=== PATIENT | female | born 1950 | race Caucasian/White ===

== ENCOUNTER 2020-11-04 09:09 | Outpatient (CLI) | payer OTHER, SELFPAY ==
--- NOTE | ~2020-11-04 | DEXA_ITS ---
Bone Density Report Name: Radha Garces Age: 70 Sex: Female Ethnicity: White Date of : 1950 Indication: postmenopausal; height loss; cancer; hysterectomy; Referring Provider: Flor Buitrago Study: Bone densitometry was performed. Exam Date: November 04, 2020 Accession number: [id number] Bone Density: Region BMD T-score Z-score Classification AP Spine (L1-L4) 1.086 0.4 2.4 Normal Femoral Neck (Left) 0.810 -0.4 1.4 Normal Total Hip (Left) 0.981 0.3 1.8 Normal Total Hip Bilateral Avg 0.968 0.2 1.7 Normal Femoral Neck (Right) 0.873 0.2 2.0 Normal Total Hip (Right) 0.954 0.1 1.5 Normal World Health Organization criteria for BMD impression classify patients as: Normal (T-score at or above -1.0), Osteopenia (T-score between -1.0 and -2.5), or Osteoporosis (T-score at or below -2.5). 10-year Fracture Risk: FRAX not reported because: All T-scores for Spine Total, Hip Total, Femoral Neck at or above -1.0 Treated for osteoporosis Clinical Information Provided by Patient: Is being treated for osteoporosis Has used the following medications: Vitamin D Has the following medical conditions: Cancer, Hysterectomy Patient maximum height was 62 Menopause Age: 46 No regular weight bearing exercise Drinks caffeinated beverages Onset of menses at age 14 Number of children 2 Impression: The patient has normal bone mass. Discussion: It is important to ask patients whether they are taking their medications and to encourage continued and appropriate compliance with their osteoporosis therapies to reduce fracture risk. It is also important to review their risk factors and encourage appropriate calcium and vitamin D intakes, exercise, fall prevention and other lifestyle measures. Follow-Up: Consider a repeat BMD and Vertebral Fracture Assessment (VFA) exam in 2 years or sooner if medically necessary, to reassess this patient's status. Reported by: JENNIFER on 11/04/2020 9:51:00 AM. Reviewed, dictated and finalized at location AMalena GONZALEZ
== END 2020-11-04 09:10 | disposition home or self-care (01) ==
PROVIDERS: PCP Family Medicine; Visit Provider Nurse Practitioner Family
DX: Z78.0 Asymptomatic menopausal state (principal)
CPT/HCPCS: 77080

== ENCOUNTER → 2021-11-21 16:22 | Outpatient (CLI) | payer OTHER, SELFPAY ==
--- NOTE | ~2021-11-21 | XR_ITS ---
XR chest 2V 11/21/2021 16:43 Indication: Shortness of breath Procedure: 2 view chest Comparison: Comparison to multiple prior studies sequentially, with oldest reviewed study dated 08/2013. Findings: There is patchy infiltrates of the mid and lower lungs, consistent with pneumonia. Borderli ne heart size. No pleural effusion or pneumothorax. No acute osseous abnormality. Impression: 1: Patchy bilateral infiltrates, suspicious for pneumonia. Reviewed, dictated and finalized at location A. Impression: 1: Patchy bilateral infiltrates, suspicious for pneumonia.
== END ==
PROVIDERS: PCP Family Medicine; Visit Provider Nurse Practitioner Family
DX: R05.3 Chronic cough (principal); R91.8 Other nonspecific abnormal finding of lung field
CPT/HCPCS: 71046

== ENCOUNTER → 2021-12-22 10:30 | Outpatient (CLI) | payer OTHER, SELFPAY ==
--- NOTE | ~2021-12-22 | XR_ITS ---
EXAMINATION: XR chest 2V DATE: 12/22/2021 12:14 INDICATION: Pneumonia, unspecified organism. TECHNIQUE: Frontal and lateral views of the chest were obtained. COMPARISON: Chest 2 views 11/21/2021, 01/20/2019, chest CT 06/08/2014 FINDINGS: The lung volumes are normal. There are reticular opacities in left midlung zone. No pleural effusion or pneumothorax. The heart size is normal. Surgical clips in the right upper quadrant are l ikely from cholecystectomy. IMPRESSION: 1. Stable reticular opacities in left midlung zone, likely mild chronic lung disease. Reviewed, dictated and finalized at location A. IMPRESSION: 1. Stable reticular opacities in left midlung zone, likely mild chronic lung di sease.
== END ==
PROVIDERS: PCP Family Medicine; Visit Provider Nurse Practitioner Family
DX: J18.9 Pneumonia, unspecified organism (principal); R91.8 Other nonspecific abnormal finding of lung field
CPT/HCPCS: 71046

== ENCOUNTER 2022-03-16 09:35 | Outpatient (CLI) | payer OTHER, SELFPAY ==
--- NOTE | 2022-03-16 11:00 | NEURO_ITS ---
Impression: # Complains of stiffness and generalized weakness particularly in the AM. # Normal motor and sensory nerve conduction study. # Normal needle/EMG exam with no neurogenic changes noted. # Clinical correlation recommended. Nerve Conduction Studies Anti Sensory Summary Table Stim Site NR Peak (ms) P-T Amp (?V) Site1 Site2 Delta-P (ms) Dist (cm) Devon (m/s) Left Sup Fibular Anti Sensory (Ant Lat Mall) 14 cm 3.0 5.3 14 cm Ant Lat Mall 3.0 16.0 53 Right Sup Fibular Anti Sensory (Ant Lat Mall) 14 cm 3.2 15.3 14 cm Ant Lat Mall 3.2 16.0 50 Left Sural Anti Sensory (Lat Mall) Calf 3.3 10.3 Calf Lat Mall 3.3 16.0 48 Right Sural Anti Sensory (Lat Mall) Calf 3.6 11.0 Calf Lat Mall 3.6 16.0 44 Motor Summary Table Stim Site NR Onset (ms) O-P Amp (mV) Site1 Site2 Delta-0 (ms) Dist (cm) Devon (m/s) Left Peroneal Motor (Vastus Med) Ankle 4.3 0.7 Popit Ankle 6.4 34.0 53 Popit 10.7 0.7 Right Peroneal Motor (Vastus Med) Ankle 4.7 1.1 Popit Ankle 7.1 35.0 49 Popit 11.8 0.9 Left Tibial Motor (Abd Lopez Brev) Ankle 4.6 2.9 Knee Ankle 8.0 39.0 49 Knee 12.6 2.9 Right Tibial Motor (Abd Lopez Brev) Ankle 4.9 1.0 Knee Ankle 8.4 37.0 44 Knee 13.3 1.6 F Wave Studies NR F-Lat (ms) L-R F-Lat (ms) Left Peroneal (Mrkrs) (EDB) 55.36 0.58 Right Peroneal (Mrkrs) (EDB) 55.94 0.58 Left Tibial (Mrkrs) (Abd Hallucis) 56.26 0.82 Right Tibial (Mrkrs) (Abd Hallucis) 55.44 0.82 EMG Side Muscle Nerve Root Ins Act Fibs Amp Dur Recrt Comment Right AntTibialis Dp Br Fibular L4-5 Nml Nml Nml Nml Nml Right Gastroc Tibial S1-2 Nml Nml Nml Nml Nml Right Fibularis Long Sup Br Fibular L5-S1 Nml Nml Nml Nml Nml Right Flex Dig Long Tibial L5-S2 Nml Nml Nml Nml Nml Right Ext Dig Brev Dp Br Fibular L5, S1 Nml Nml Nml Nml Nml Left AntTibialis Dp Br Fibular L4-5 Nml Nml Nml Nml Nml Left Gastroc Tibial S1-2 Nml Nml Nml Nml Nml Left Fibularis Long Sup Br Fibular L5-S1 Nml Nml Nml Nml Nml Left Flex Dig Long Tibial L5-S2 Nml Nml Nml Nml Nml Left Ext Dig Brev Dp Br Fibular L5, S1 Nml Nml Nml Nml Nml MTDD
== END 2022-03-16 09:36 | disposition home or self-care (01) ==
PROVIDERS: PCP Family Medicine; Visit Provider Family Medicine
DX: M62.81 Muscle weakness (generalized) (principal)
CPT/HCPCS: 95886; 95910

== ENCOUNTER 2022-06-24 11:08 | Inpatient (IN) | payer OTHER, SELFPAY ==
[2022-06-24] VITALS (55 sets, daily range): BP systolic 119–190; BP diastolic 62–112; PULSE 46–78; RESP 10–28; TEMP 35.6; O2SAT 93–100; BMI 41.3
--- NOTE | ~2022-06-24 | CT_ITS ---
EXAMINATION: CT brain wo con DATE: 06/24/2022 11:43 INDICATION: Syncope TECHNIQUE: Computed tomography (CT) of the head was performed without intravenous contrast. Sagittal and coronal reconstructions were performed. The mA was adjusted according to patient size. Iterative reconstruction technique was employed. The dose-length product was 605.33 mGy-cm. COMPARISON: None FINDINGS: No acute intracranial hemorrhage, acute infarction or abnormal extra axial fluid collection. Symmetri c prominence of the sulci consistent with mild age-appropriate diffuse cerebral volume loss. Ventric les are normal and symmetric. No mass/mass effect. The orbits, paranasal sinuses and mastoid air cell s are normal. IMPRESSION: 1. Normal aging brain. No acute intracranial process. Reviewed, dictated and finalized at location A. SPECIALIST
--- NOTE | ~2022-06-24 | NM_ITS ---
EXAMINATION: NM yvonne stress w perfusion DATE: 06/27/2022 13:03 INDICATION: Collapse. Elevated troponin. TECHNIQUE: Rest images were obtained following intravenous administration of 9.9 mCi Tc99m tetrofosmi n (Myoview). The patient was infused intravenously with Lexiscan (Regadenoson). Then, 31.7 mCi Tc99m tetrofosmin (Myoview) was administered intravenously, and stress images were obtained. Data was recon structed into short axis and horizontal and vertical long axis SPECT images. Gated SPECT images were also obtained. COMPARISON: None. FINDINGS: There is no definite reversible or fixed perfusion abnormality to suggest ischemia or infar ction. There is normal left ventricular chamber size, wall motion and ejection fraction. Left ventr icular ejection fraction measures 62%. IMPRESSION: 1. Normal myocardial perfusion at rest and during stress. 2. Left ventricular ejection fraction measuring 62%. Reviewed, dictated and finalized at location A. ON SUNGL[employer] ASSEMBLER
--- NOTE | ~2022-06-24 | XR_ITS ---
EXAMINATION: XR chest 1V portable DATE: 06/24/2022 12:15 INDICATION: Syncope. Status post chest compressions. TECHNIQUE: frontal view of the chest was obtained. COMPARISON: Chest radiograph dated 12/22/2021 FINDINGS: The lungs remain clear with no focal airspace opacities, pulmonary edema, pleural effusion or pneumot horax. The cardiomediastinal silhouette is normal. Visualized bones and soft tissues are unremarkable . IMPRESSION: 1. No acute cardiopulmonary disease. Reviewed, dictated and finalized at location A. AINABLE DESIGN COORDINATOR
--- NOTE | 2022-06-24 11:14 | ECG_ITS ---
Measurements Intervals [place] Rate: 57 P: 40 VT: 182 QRS: -15 QRSD: 110 T: 16 QT: 459 QTc: 450 Interpretive Statements SINUS BRADYCARDIA VOLTAGE CRITERIA FOR LVH ABNORMAL ECG NO PREVIOUS ECG AVAILABLE FOR COMPARISON Electronically Signed On 06-24-2022 13:41:24 ACADEMIC AFFAIRS ASSISTANT by Gudio Fraire M.D.
[2022-06-24 11:32] LABS: Basophils Percent Auto 0.2 % (0.2-1.2); Hematocrit 37.9 % (37.0-47.0); Hemoglobin 11.6 g/dL (12.0-15.0); Immature Granulocyte Absolute 0.15 K/mm3 (0.00-0.031); Immature Granulocyte Percent A 1.1 % (0-0.5); Lymphocytes Absolute Auto 3.75 K/mm3 (0.9-3.2); Lymphocytes Percent Auto 28.1 % (18.3-44.2); Mean Corpuscular HGB Conc 30.6 g/dl (32-36); Mean Corpuscular Hemoglobin 23.9 pg (26-34); Mean Corpuscular Volume 78.1 fl (80-100); Monocytes Absolute Auto 0.5 K/mm3 (0.1-0.6); Monocytes Percent Auto 3.4 % (2.6-8.5); Neutrophils Percent Auto 67.2 % (45.5-73.1); Platelet Count Result 387 k/mm3 (150-375); Red Blood Count 4.85 M/mm3 (4.2-5.4); Red Cell Distribution Width 17.9 % (11.5-14.5); White Blood Count 13.4 K/mm3 (4.5-10.0)
[2022-06-24 11:41] LABS: Alanine Aminotransferase 57 U/L (6-35); Albumin Level 4.2 g/dL (3.5-5.1); Alkaline Phosphatase 94 U/L (38-126); Anion Gap 14 mmol/L (8-16); Aspartate Amino Transferase 93 U/L (14-36); Bilirubin,Total 0.5 mg/dL (0.2-1.3); Blood Urea Nitrogen 24 mg/dL (7-17); Calcium 9.4 mg/dL (8.4-10.2); Carbon Dioxide 15 mmol/L (22-30); Chloride 108 mmol/L (98-107); Estimated CRCL calculation 42 ml/min; Estimated Glomerular Filt Rate 44; Glucose 129 mg/dL (65-110); Sodium 137 mmol/L (137-145)
--- NOTE | 2022-06-24 12:03 | ED.SYNCOPE ---
HPI - Syncope General Chief Complaint: Syncope Stated Complaint: ?unresponsive Time Seen by Provider: 06/24/22 11:37 History of Present Illness HPI narrative: Patient is a 71-year-old female with a history of CAD, hypothyroidism, hypertension presenting with syncope. Patient was carrying in some groceries when she started to feel lightheaded. Patient states that she tried to lean against the counter which is the last thing she remembers. The patient's was present and states that she just dropped to the floor completely unresponsive. States that she remained this way so he started chest compressions. He called EMS and then continued compressions before delivering a precordial thump. The patient subsequently started to arouse. By the time EMS arrived, the patient was A&O x3. She was recently treated for influenza as well as a UTI. States that she recently started prednisone for polymyalgia rheumatica. States that she has been doing well until this morning. She denies recent fevers or chills, headache, chest pain, palpitations, shortness of breath, abdominal pain, nausea or vomiting, diarrhea, dysuria, leg swelling. Related Data Home Medications Medication Instructions Recorded Confirmed aspirin 81 mg tablet,delayed 81 mg PO QHS 10/24/19 06/24/22 release cetirizine 10 mg tablet (Zyrtec) 10 mg PO QHS 10/24/19 06/24/22 cholecalciferol (vitamin D3) 25 25 mcg PO QHS 10/24/19 06/24/22 mcg (1,000 unit) capsule tamoxifen 20 mg tablet 20 mg PO QHS 10/24/19 06/24/22 clopidogrel 75 mg tablet (Plavix) 75 mg PO QHS 01/29/20 06/24/22 ursodiol 250 mg tablet 750 mg PO QHS 09/15/20 06/24/22 ferrous sulfate 325 mg (65 mg 325 mg PO BID 04/24/22 06/24/22 iron) tablet,delayed release levothyroxine 50 mcg tablet 50 mcg PO QAM 06/24/22 06/24/22 metoprolol succinate 25 mg 25 mg PO QHS 06/24/22 06/24/22 tablet,extended release 24 hr (Toprol XL) prednisone 10 mg tablet 10 mg PO TID 06/24/22 06/24/22 trimethoprim 100 mg tablet 100 mg PO HS 06/24/22 06/24/22 Allergies Allergy/AdvReac Type Severity Reaction Status Date / Time amoxicillin Allergy Unknown Upset Verified 06/24/22 13:12 stomach Review of Systems Review of Systems: All systems reviewed & are unremarkable except as noted in HPI and below PMFSH Past Medical History Medical History Anxiety Breast cancer Left breast cancer proximally 21 years ago status post lumpectomy and chemoradiation. Right breast cancer (in situ) approximately 3 years ago status post lumpectomy, currently on tamoxifen. Bronchiolitis obliterans organizing pneumonia Bruit of right carotid artery Chronic kidney disease, stage 3 Dyslipidemia Hypertension Osteoarthritis Peripheral arterial disease Polymyalgia rheumatica Surgical History Surgical History History of section History of cholecystectomy History of hysterectomy History of vascular surgery Left upper extremity stent. Family History Family History Father Hypertension Patient's father is , Onset Age: 52 Cerebrovascular accident Mother Family history of diabetes mellitus in first degree relative Family history of pancreatic cancer Family history of primary malignant neoplasm of liver Patient's mother is , Onset Age: 64 Sibling Malignant neoplasm of prostate Daughter Breast cancer H/O mastectomy Social History Social History Social History: Surrogate medical decision maker: Thomas Mili, spouse. Code status: Full code. Smoking status: Never smoker Second hand tobacco smoke exposure: No Alcohol intake: never Substance use: never Substance use type: does not use Lack of Transportation: No Lack of Food: Never True Current Housing: [place]
[2022-06-24 12:33] LABS: INR 1.1; Partial Thromboplastin Time 23.1 SECONDS (22.3-36.8); Prothrombin Time 13.9 Seconds (11.1-14.7)
[2022-06-24 12:40] LABS: NT Pro B Type Natriuretic Pept 804 pg/mL (5-100); Troponin I < 0.012 ng/mL (0.000-0.034)
[2022-06-24 13:00] LABS: Lactic Acid Reflex 3.5 mmol/L (0.7-2.0)
[2022-06-24 13:25] LABS: Influenza A QL RT-PCR Negative (Negative); Influenza B QL RT-PCR Negative (Negative); SARS-CoV-2 RNA PCR Negative
--- NOTE | 2022-06-24 14:45 | PM.IMHP ---
H&P: HPI History of Present Illness Date/Time: 06/24/22 14:45 Chief Complaint: Unresponsive episode. Narrative: This is a very pleasant 71-year-old female with history of hypertension, hyperlipidemia, peripheral arterial disease status post left upper extremity stent, hypothyroidism, iron deficiency anemia, breast cancer on tamoxifen, and polymyalgia rheumatica who presented to the emergency department via EMS from home for evaluation of an unresponsive episode. She was just diagnosed with polymyalgia rheumatica and was started on prednisone a couple of days ago with marked improvement in her proximal muscle weakness and pain. In fact she and her went out shopping today and she reports feeling great for the 1st time in months. While carrying groceries into the house she suddenly felt fatigued, weak, and lightheaded and she bent over the kitchen counter to ?rest.? Her witnessed her falling down to her knees and back onto the floor. She was pale, cool, clammy, and unresponsive and was reportedly not breathing. He was unable to feel a pulse and started CPR. After a couple minutes of CPR he reached for the phone and called 911. Within a minute or 2 she was still not responding and he notes that her lips were turning blue. He gave her a precordial thump and shortly thereafter she gas for air and within a minute or so she was responding to questions appropriately. She was alert and oriented on EMS arrival. In route to the hospital she started to feel nausea and was given Zofran with improvement. Blood pressure was stable if not high on arrival to the ED. Her pulse has been pretty consistently in the mid to upper 50s. Labs were significant for WBC of 13.4, sodium 137, potassium 4.0, magnesium 2.0, calcium 9.4, chloride 108, carbon dioxide 15, BUN 24, creatinine 1.20, lactic acid 3.5 food, troponin less than 0.012, proBNP at 804. EKG showed a sinus bradycardia with voltage criteria for LVH. Brain CT and chest x-ray were unremarkable. At the time my evaluation she feels fine and has absolutely no complaints. She has never had similar symptoms in the past. She has no known history of cardiac dysrhythmia. She denies syncopal episodes in the past and she has not had issues with orthostasis. She does not recall having chest pain or discomfort prior to this episode and she has never had exertional chest pain. She had influenza A a couple of weeks ago and still has a mild lingering cough but other than that feels well. Review of Systems Review of Systems: Twelve systems were reviewed. She was hospitalized at [place] for influenza a couple of weeks ago and completed a course of Tamiflu. She still has a lingering cough. No fever, chills, or sweats. She denies focal weakness and paresthesias. No history of seizure reported seizure activity today. She denies nausea, vomiting, diarrhea, and dysuria. No lower extremity swelling. No history of venous thromboembolism. Chest CT at [place] couple of weeks ago was negative for PE. Except as documented, all other systems were reviewed and are negative. [facility] Past Medical History Medical History (Updated 06/24/22 @ 15:08 by Jessica Buenrostro PA-C) Anxiety Breast cancer Left breast cancer proximally 21 years ago status post lumpectomy and chemoradiation. Right breast cancer (in situ) approximately 3 years ago status post lumpectomy, currently on tamoxifen. Bronchiolitis obliterans organizing pneumonia Bruit of right carotid artery Chronic kidney disease, stage 3 Dyslipidemia Hypertension Osteoarthritis Peripheral arterial disease Polymyalgia rheumatica Surgical History Surgical History (Updated 06/24/22 @ 15:01 by Jessica Buenrostro PA-C) History of section History of cholecystectomy History of hysterectomy History of vascular surgery Left upper extremity stent. Family History Family History Father Hypertension P
[2022-06-24 15:13] LABS: Troponin I 0.035 ng/mL (0.000-0.034)
[2022-06-24 15:48] LABS: Reflex Lactic Acid Yes or No Add Lactic
[2022-06-24 16:18] LABS: Lactic Acid 2.7 mmol/L (0.7-2.0)
[2022-06-24 17:55] LABS: Troponin I 0.039 ng/mL (0.000-0.034)
--- NOTE | 2022-06-24 22:46 | PC.NURSE ---
This patient, Radha Garces, was admitted to IMU Room 200-01 at 2210. Patient/family oriented to hospital policies and general routines including ID bracelet, bed and alarms, visiting hours, pain management, procedures, bathroom and other care routines, personal items, smoking policy, room service/diet, and visiting hours. Information on how to activate the Rapid Response Team has been discussed. Patient/Family are encouraged to report perceived risks to care and to ask questions if they do not understand what they are told or what they should do.
[2022-06-25] VITALS (16 sets, daily range): BP systolic 142–183; BP diastolic 55–87; PULSE 57–73; RESP 16–22; TEMP 36.1–36.4; O2SAT 96–100
[2022-06-25] MEDS: CLOPIDOGREL BISULFATE 75 MG TABLET PO ×2 (00:59→21:23)
[2022-06-25] MEDS: ASPIRIN 81 MG ENTERIC TABLET PO ×2 (00:59→21:23)
[2022-06-25] MEDS: predniSONE 10 MG TABLET PO ×4 (01:00→17:15)
[2022-06-25] MEDS: CHOLECALCIFEROL 1,000 UNITS TABLET 1000 UNITS PO ×2 (01:00→21:23)
[2022-06-25] MEDS: METOPROLOL SUCCINATE EXT REL 25 MG TABCR PO ×2 (01:00→21:24)
[2022-06-25] MEDS: LORATADINE 10 MG TABLET PO ×2 (01:01→21:25)
[2022-06-25] MEDS: TRIMETHOPRIM 100 MG TABLET PO ×2 (01:01→21:23)
[2022-06-25] MEDS: TAMOXIFEN CITRATE (*CHEMO) 10 MG TABLET 20 MG PO ×2 (01:01→21:25)
[2022-06-25] MEDS: PREGABALIN (*CRX) 75 MG CAPSULE PO ×3 (01:01→17:15)
[2022-06-25 05:32] LABS: Hematocrit 35.2 % (37.0-47.0); Hemoglobin 10.7 g/dL (12.0-15.0); Mean Corpuscular HGB Conc 30.4 g/dl (32-36); Mean Corpuscular Hemoglobin 23.9 pg (26-34); Mean Corpuscular Volume 78.7 fl (80-100); Mean Platelet Volume 10.2 fl (7.4-10.4); Platelet Count Result 366 k/mm3 (150-375); Red Blood Count 4.47 M/mm3 (4.2-5.4); Red Cell Distribution Width 18.3 % (11.5-14.5); White Blood Count 10.9 K/mm3 (4.5-10.0)
[2022-06-25 05:51] LABS: Alanine Aminotransferase 51 U/L (6-35); Albumin Level 3.6 g/dL (3.5-5.1); Alkaline Phosphatase 82 U/L (38-126); Anion Gap 6 mmol/L (8-16); Aspartate Amino Transferase 44 U/L (14-36); Bilirubin,Total 0.5 mg/dL (0.2-1.3); Blood Urea Nitrogen 27 mg/dL (7-17); Calcium 8.9 mg/dL (8.4-10.2); Carbon Dioxide 23 mmol/L (22-30); Chloride 110 mmol/L (98-107); Estimated CRCL calculation 50 ml/min; Estimated Glomerular Filt Rate 55; Glucose 103 mg/dL (65-110); Magnesium 2.1 mg/dL (1.6-2.3); Potassium 4.6 mmol/L (3.4-5.0); Sodium 139 mmol/L (137-145)
[2022-06-25] MEDS: LEVOTHYROXINE SODIUM 50 MCG TABLET PO (05:52)
[2022-06-25] MEDS: FERROUS SULFATE 324 MG TABLET PO ×2 (09:44→17:15)
--- NOTE | 2022-06-25 10:02 | PM.CNCAR ---
Assessment and Plan Assessment and plan (1) Cardiac arrest: Code(s): I46.9 - Cardiac arrest, cause unspecified Status: Acute Assessment and Plan: By the description, it appears patient had an aborted sudden cardiac event with very prompt initiation of CPR and with resuscitation only after precordial thump by her . We do not have documentation of VT/VF to date. Mild troponin elevation would definitely consistent with such an event but is not suggestive of acute coronary syndrome/myocardial infarction has precipitating event. However, patient does not have a known cardiomyopathy or symptoms suggestive of angina or CHF. EF in 2019 was 60-65%. Her EKG does not have acute ischemic changes and to date no other significant tachy or Donald arrhythmias identified on telemetry. However, given very clear description concerningly yet remarkably almost immediate change in clinical status after precordial thump strongly suggests VT and more likely VF. As I explained in detail this is my primary concern clinically we would not expect her to be at high risk for such an event must new LV dysfunction and no significant CAD is present. We will obtain a 2D echocardiogram to assess LV size/function, wall motion abnormalities and LV function, valve pathology chamber size. Recommendations to follow thereafter. I recommended if any wall motion abnormality and or degree of LV dysfunction coronary angiography would be advised for delineation of her coronary anatomy. If etiology is yet to be identified and no subsequent ventricular arrhythmias noted a minimum of 30 day panel monitor would be advised upon discharge and if even at that time diagnosis is still unknown and implantable loop recorder be strongly recommended. I believe she should remain hospitalized until clarification with regard to cardiac status, LV function and least 24 hours monitored on telemetry to assess for a ventricular arrhythmia. I will continue her home medications edema clopidogrel and aspirin, and Toprol XL. Explained process of identification and or management of secondary reversible contributions and the pathophysiology which may increase likelihood for such an event. Description and her symptoms are not consistent with vasovagal etiology or simply intravascular volume depletion. Furthermore, her response with CPR precordial thump are not consistent with PEA arrest, asystole or symptomatic bradycardia. However, despite the above the precise etiology of her presentation is not entirely clear as we discussed at great length. Patient and her verbalized understanding and agreed with plan of care. All questions were answered to their satisfaction. Patient's presentation is highly unusual and highly concerning and warrants further extensive workup initiated this hospitalization and continued after discharge. Depending on patient's clinical course and findings we also discussed potential referral to electrophysiology. DVT prophylaxis. Continue panel monitor in IMU. Repeat 12 lead EKG and troponin. (2) Elevated troponin: Code(s): R77.8 - Other specified abnormalities of plasma proteins Status: Acute Assessment and Plan: As above. Mild elevation not consistent with a significant infarction most likely demand ischemia in this repeat troponin is significantly higher. Echocardiogram pending. Continue telemetry. (3) Peripheral arterial disease: Code(s): I73.9 - Peripheral vascular disease, unspecified Status: Acute Assessment and Plan: Stable, asymptomatic. Statin therapy strongly advised. (4) Hypertension: Code(s): I10 - Essential (primary) hypertension Status: Acute Assessment and Plan: Hemodynamically stable. (5) Dyslipidemia: Code(s): E78.5 - Hyperlipidemia, unspecified Status: Acute Assessment and Plan: Unclear if statin therapy was held secondary to patient's pain and weakn
--- NOTE | 2022-06-25 13:46 | PM.IMPN ---
Progress Note: A&P Assessment and Plan (1) Syncope: Code(s): R55 - Syncope and collapse Status: Acute Assessment and Plan: Syncope verses possible cardiac arrest. Workup thus far has an pretty unremarkable and EKG does not show any acute findings. She remains bradycardic in the 50s though she is asymptomatic with that and her blood pressures have been stable. She has and he admitted to IMU and will ask Cardiology to see her in consultation. Echocardiogram and carotid Doppler ultrasounds have been ordered for further evaluation. (2) Elevated lactic acid level: Code(s): R79.89 - Other specified abnormal findings of blood chemistry Status: Acute Assessment and Plan: Likely due to hypoperfusion related to above. No history to suggest active infection. (3) Elevated LFTs: Code(s): R79.89 - Other specified abnormal findings of blood chemistry Status: Acute Assessment and Plan: Abdominal exam is benign. May be related to above. Repeat in a.m.. (4) Peripheral arterial disease: Code(s): I73.9 - Peripheral vascular disease, unspecified Status: Acute Assessment and Plan: Status post left upper extremity stent. Continue aspirin and clopidogrel. (5) Hypertension: Code(s): I10 - Essential (primary) hypertension Status: Acute Assessment and Plan: Blood pressures have been stable in fact a bit elevated. Continue antihypertensives and monitor closely. (6) Dyslipidemia: Code(s): E78.5 - Hyperlipidemia, unspecified Status: Acute Assessment and Plan: Not on a statin for unclear reasons. Check lipids in a.m. (7) Polymyalgia rheumatica: Code(s): M35.3 - Polymyalgia rheumatica Status: Acute Assessment and Plan: Continue prednisone. (8) Chronic kidney disease, stage 3: Code(s): N18.30 - Chronic kidney disease, stage 3 unspecified Status: Acute Assessment and Plan: Renal function is stable on review of previous labs. Subjective Date/time seen: 06/25/22 13:46 No new complaints Exam Const: Other: Well-developed, nontoxic-appearing female sitting in bed no distress. Weight: 93.7 kilograms. BMI: 37.8. HENMT: Other: Normocephalic, atraumatic. Nares pain bilaterally. Oral mucosa moist. Oropharynx clear. Eyes: Other: Pupils are reactive. Extraocular motions intact. Sclerae anicteric. Neck: Other: Supple. No JVD. Faint bilateral carotid bruits. Chest: Other: No bruising or erythema over the chest wall. Resp: Other: Respirations are nonlabored. Fine crackles at the left base otherwise clear to auscultation. Cardio: Other: Bradycardic with normal S1-S2. GI: Other: Abdomen is soft, nontender, and nondistended with positive bowel sounds. Skin: Other: Warm and dry. There is a bruise on the lateral aspect of the right scapula. Neuro: Other: Alert and oriented x4. Cranial nerves 2-12 grossly intact. No gross focal deficits to casual conversation. Extrem: Other: No cyanosis, clubbing, or significant edema. Pulses palpable. No palpable knots or cords. Negative Jordana sign bilaterally. Psych: Other: Pleasant and cooperative with appropriate mood and affect. She is in good spirits. Objective Data Vital Signs Vital Signs: Vital Signs - 24 hr 06/24/22 14:00 06/24/22 14:02 06/24/22 14:50 Temperature Pulse Rate 47 L 49 L 60 Respiratory Rate 17 18 Blood Pressure 180/68 H Pulse Oximetry 99 100 98 Oxygen Delivery 06/24/22 15:04 06/24/22 15:15 06/24/22 15:17 Temperature Pulse Rate 56 L 53 L 57 L Respiratory Rate 16 Blood Pressure 184/104 H Pulse Oximetry 97 99 100 Oxygen Delivery 06/24/22 15:30 06/24/22 15:33 06/24/22 15:34 Temperature Pulse Rate 52 L 59 L 50 L Respiratory Rate 14 19 14 Blood Pressure 130/80 Pulse Oximetry 98 96 97 Oxygen Delivery 06/24/22 15:49 06/24/22 16:00 06/24/22
--- NOTE | 2022-06-25 13:51 | ECG_ITS ---
Measurements Intervals [place] Rate: 72 P: 46 OH: 161 QRS: -19 QRSD: 96 T: 18 QT: 410 QTc: 449 Interpretive Statements ABNORMAL ECG SINUS RHYTHM VOLTAGE CRITERIA FOR LVH COMPARED TO ECG 06/24/2022 11:16:07 HEART RATE HAS INCREASED Electronically Signed On 06-25-2022 15:58:08 PIZZA CHEF by Guido Fraire M.D.
--- NOTE | 2022-06-25 14:51 | PHAR ---
The patient's home med of Ursodiol 250 mg tablet has been verified.
[2022-06-25 14:58] LABS: Troponin I < 0.012 ng/mL (0.000-0.034)
[2022-06-26] VITALS (14 sets, daily range): BP systolic 138–192; BP diastolic 50–94; PULSE 48–102; RESP 16–20; TEMP 36.2–36.6; O2SAT 97–100
[2022-06-26] MEDS: LEVOTHYROXINE SODIUM 50 MCG TABLET PO (05:25)
[2022-06-26] MEDS: predniSONE 10 MG TABLET PO ×3 (09:23→17:38)
[2022-06-26] MEDS: PREGABALIN (*CRX) 75 MG CAPSULE PO ×2 (09:23→17:38)
[2022-06-26] MEDS: FERROUS SULFATE 324 MG TABLET PO ×2 (09:23→17:38)
[2022-06-26] MEDS: PERFLUTREN LIPID MICROSPHERES 1.5 ML VIAL DILUTED TO 10 ML TOTAL VOLUME IV PUSH (10:00)
--- NOTE | 2022-06-26 11:49 | PM.PNCARD ---
Progress Note: A&P Assessment and Plan (1) Cardiac arrest: Code(s): I46.9 - Cardiac arrest, cause unspecified Status: Acute Assessment and Plan: By the description, it appears patient had an aborted sudden cardiac event with very prompt initiation of CPR and with resuscitation only after precordial thump by her . We do not have documentation of VT/VF to date. Mild troponin elevation would definitely consistent with such an event but is not suggestive of acute coronary syndrome/myocardial infarction has precipitating event. However, patient does not have a known cardiomyopathy or symptoms suggestive of angina or CHF. EF in 2019 was 60-65%. Her EKG does not have acute ischemic changes and to date no other significant tachy or Donald arrhythmias identified on telemetry. Bedside review 2D echocardiogram reveals hyperdynamic LV systolic function with LVH, no focal wall motion abnormalities EF 70-75%. As discussed with patient and her will obtained Lexiscan nuclear stress test to assess for myocardial ischemia tomorrow morning prior to discharge. If stress is unremarkable without acute event they will obtain a 30 day playground monitor from our office upon discharge. For patient's states he is not comfortable with her going home without further ischemic evaluation given the circumstances and I feel this is very appropriate. She will stay today as stress test or not be performed today with anticipate discharge home tomorrow if no further issues arise a stress test is favorable. All questions answered the patient and her 's satisfaction. Agrees to plan of care. Repeat troponin was negative in 12 EKG did not reveal subsequent or new ischemic changes. No ventricular arrhythmias or pauses on telemetry. Continue current medical therapy. She may be transferred to [facility]. (2) Elevated troponin: Code(s): R77.8 - Other specified abnormalities of plasma proteins Status: Acute Assessment and Plan: As above. Mild elevation not consistent with a significant infarction most likely demand ischemia. Continue telemetry. (3) Peripheral arterial disease: Code(s): I73.9 - Peripheral vascular disease, unspecified Status: Acute Assessment and Plan: Stable, asymptomatic. Statin therapy strongly advised. (4) Hypertension: Code(s): I10 - Essential (primary) hypertension Status: Acute Assessment and Plan: Hemodynamically stable. (5) Dyslipidemia: Code(s): E78.5 - Hyperlipidemia, unspecified Status: Acute Assessment and Plan: Unclear if statin therapy was held secondary to patient's pain and weakness more recently attributed to polymyalgia rheumatica markedly improved with steroids. I would favor resumption for atherosclerotic risk reduction. Atorvastatin 20 mg at bedtime. (6) Anemia: Qualifiers: Anemia type: iron deficiency Iron deficiency anemia type: unspecified iron deficiency Qualified Code(s): D50.9 - Iron deficiency anemia, unspecified Code(s): D64.9 - Anemia, unspecified Status: Acute Assessment and Plan: Stable. Follow H&H. (7) Polymyalgia rheumatica: Code(s): M35.3 - Polymyalgia rheumatica Status: Acute Assessment and Plan: As above. Defer management to primary service. She remains on prednisone. Subjective Date/time seen: Date of service: 06/26/22 11:49 Follow-up for probable cardiac arrest/unresponsive episode Today patient feels well. Denies chest pain, shortness of breath or palpitations. No new issues overnight. No ventricular arrhythmias or prolonged pauses or high-grade AV blocks. at bedside. I discussed my recommendations for ischemic evaluation prior to discharge which her wholeheartedly agreed and indicated he would not be comfortable otherwise. As we previously discussed he also strongly desires she obtained playground monitor up
--- NOTE | 2022-06-26 12:55 | PM.IMPN ---
Progress Note: A&P Assessment and Plan (1) Syncope: Code(s): R55 - Syncope and collapse Status: Acute Assessment and Plan: Syncope verses possible cardiac arrest. Workup thus far has an pretty unremarkable and EKG does not show any acute findings. She remains bradycardic in the 50s though she is asymptomatic with that and her blood pressures have been stable. She has and he admitted to IMU and will ask Cardiology to see her in consultation. Echocardiogram and carotid Doppler ultrasounds have been ordered for further evaluation. Ischemic workup pending. (2) Elevated lactic acid level: Code(s): R79.89 - Other specified abnormal findings of blood chemistry Status: Acute Assessment and Plan: Likely due to hypoperfusion related to above. No history to suggest active infection. (3) Elevated LFTs: Code(s): R79.89 - Other specified abnormal findings of blood chemistry Status: Acute Assessment and Plan: Abdominal exam is benign. May be related to above. Repeat in a.m.. (4) Peripheral arterial disease: Code(s): I73.9 - Peripheral vascular disease, unspecified Status: Acute Assessment and Plan: Status post left upper extremity stent. Continue aspirin and clopidogrel. (5) Hypertension: Code(s): I10 - Essential (primary) hypertension Status: Acute Assessment and Plan: Blood pressures have been stable in fact a bit elevated. Continue antihypertensives and monitor closely. (6) Dyslipidemia: Code(s): E78.5 - Hyperlipidemia, unspecified Status: Acute Assessment and Plan: Not on a statin for unclear reasons. Check lipids in a.m. (7) Polymyalgia rheumatica: Code(s): M35.3 - Polymyalgia rheumatica Status: Acute Assessment and Plan: Continue prednisone. (8) Chronic kidney disease, stage 3: Code(s): N18.30 - Chronic kidney disease, stage 3 unspecified Status: Acute Assessment and Plan: Renal function is stable on review of previous labs. Subjective Date/time seen: 06/26/22 12:55 No new complaints Exam Const: Other: Well-developed, nontoxic-appearing female sitting in bed no distress. Weight: 93.7 kilograms. BMI: 37.8. HENMT: Other: Normocephalic, atraumatic. Nares pain bilaterally. Oral mucosa moist. Oropharynx clear. Eyes: Other: Pupils are reactive. Extraocular motions intact. Sclerae anicteric. Neck: Other: Supple. No JVD. Faint bilateral carotid bruits. Chest: Other: No bruising or erythema over the chest wall. Resp: Other: Respirations are nonlabored. Fine crackles at the left base otherwise clear to auscultation. Cardio: Other: Bradycardic with normal S1-S2. GI: Other: Abdomen is soft, nontender, and nondistended with positive bowel sounds. Skin: Other: Warm and dry. There is a bruise on the lateral aspect of the right scapula. Neuro: Other: Alert and oriented x4. Cranial nerves 2-12 grossly intact. No gross focal deficits to casual conversation. Extrem: Other: No cyanosis, clubbing, or significant edema. Pulses palpable. No palpable knots or cords. Negative Jordana sign bilaterally. Psych: Other: Pleasant and cooperative with appropriate mood and affect. She is in good spirits. Objective Data Vital Signs Vital Signs: Vital Signs - 24 hr 06/25/22 13:24 06/25/22 14:00 06/25/22 15:51 Temperature Pulse Rate 63 61 Respiratory Rate Blood Pressure Pulse Oximetry 96 Oxygen Delivery Room Air Room Air 06/25/22 16:00 06/25/22 16:00 06/25/22 18:00 Temperature 97.2 F L Pulse Rate 59 L 61 63 Respiratory Rate 18 Blood Pressure 151/68 H Pulse Oximetry 100 Oxygen Delivery 06/25/22 20:00 06/25/22 21:24 06/25/22 20:00 Temperature 97.1 F L Pulse Rate 59 L 57 L 59 L Respiratory Rate 16 Blood Pressure 156/68 H Pulse Oximetry 97 Oxygen Delivery 06/25/22 20:00
--- NOTE | 2022-06-26 14:34 | ECHO_ITS ---
Patient Info Name: Radha Garces Age: 71 years : 1950 Gender: Female Ht: 62 in Wt: 206 lbs BSA: 2.07 m2 HR: 52 bpm BP: 138 / 70 mmHg Heart Rhythm: Sinus Rhythm Technical Quality: Fair Exam Date: 06/26/2022 10:13 AM Exam Location: [facility] Card Pulmonary Patient Status: Inpatient Admit Date: 06/24/2022 Staff Ordering Physician: Jessica Buenrostro PA-C Sanitation Truck Cleaner: Valeria Rodrigez RDCS Attending Provider: Johan Carrasquillo MD Referring Physician: Chitra SHAFFER; Exam Type: CA echo dop color flow w con Study Info Indications - syncope Complete two-dimensional, color flow and Doppler transthoracic echocardiogram is performed with contrast to opacify the left ventricle and to improve the deliniation of the left ventricle endocardial borders. Contrast/Agitated Saline Contrast/Ag. Saline: Definity Amount: 3.00 ml Administered By: Valeria Rodrigez RDCS Existing IV Access: Yes IV Access Condition: patent with no signs of infiltration Summary 1. Left ventricular chamber dimension is normal. 2. Left ventricular systolic function is hyperdynamic, estimated at >70%. 3. There is no increased left ventricular wall thickness. Sigmoid septum. 4. The left ventricular diastolic function is grade II diastolic dysfunction. 5. Left atrial chamber dimension is mildly enlarged. 6. There is mild aortic valve stenosis with a peak velocity of 222.34 cm/s, mean gradient of 11 mmHg, and aortic valve area of 1.50 cm2. 7. There is trace aortic valve regurgitation. 8. There is mild mitral valve regurgitation. 9. There is mild tricuspid valve regurgitation. 10. Moderate pulmonary hypertension, estimated pulmonary arterial systolic pressure is 54 mmHg. Left Ventricle Left ventricular chamber dimension is normal. Left ventricular systolic function is hyperdynamic, estimated at >70%. There is no increased left ventricular wall thickness. Sigmoid septum. The left ventricular diastolic function is grade II diastolic dysfunction. Right Ventricle Right ventricular chamber dimension is normal. Right ventricular systolic function is normal. Left Atria Left atrial chamber dimension is mildly enlarged. Right Atria Right atrial chamber dimension is normal. Aortic Valve The aortic valve is not well visualized. There is mild aortic valve stenosis with a peak velocity of 222.34 cm/s, mean gradient of 11 mmHg, and aortic valve area of 1.50 cm2. There is trace aortic valve regurgitation. There is mild aortic valve calcification. Pulmonic Valve The pulmonic valve is not well visualized. Mitral Valve The mitral valve has thickened leaflets. There is mild mitral valve regurgitation. The mitral valve annulus is mildly calcified. Tricuspid Valve The tricuspid valve leaflets are normal. There is mild tricuspid valve regurgitation. Moderate pulmonary hypertension, estimated pulmonary arterial systolic pressure is 54 mmHg. Pericardium/Pleural The pericardium appears normal. There is no pericardial effusion. Inferior Vena Cava Normal inferior vena cava with >50% collapse upon inspiration consistent with normal right atrial pressure, 5 mmHg. Aorta The aortic root size at the sinus of Valsalva is normal. There is moderate aortic atherosclerosis. Left Ventricular Outflow Tract Name Value Normal ------
[2022-06-26] MEDS: LORATADINE 10 MG TABLET PO (22:41)
[2022-06-26] MEDS: CLOPIDOGREL BISULFATE 75 MG TABLET PO (22:41)
[2022-06-26] MEDS: METOPROLOL SUCCINATE EXT REL 25 MG TABCR PO (22:41)
[2022-06-26] MEDS: CHOLECALCIFEROL 1,000 UNITS TABLET 1000 UNITS PO (22:41)
[2022-06-26] MEDS: ASPIRIN 81 MG ENTERIC TABLET PO (22:41)
[2022-06-26] MEDS: TRIMETHOPRIM 100 MG TABLET PO (22:42)
[2022-06-26] MEDS: TAMOXIFEN CITRATE (*CHEMO) 10 MG TABLET 20 MG PO (22:42)
[2022-06-27] VITALS (9 sets, daily range): BP systolic 157–173; BP diastolic 68–95; PULSE 53–67; RESP 16–20; TEMP 36.2–36.4; O2SAT 96–100
--- NOTE | 2022-06-27 | EST_ITS ---
Patient Info Name: Radha Garces Age: 71 years : 1950 Gender: Female Ht: 61 in Wt: 227 lbs BSA: 2.17 m2 HR: 63 bpm BP: 216 / 97 mmHg Heart Rhythm: Sinus Rhythm Exam Date: 06/27/2022 11:02 AM Exam Location: [facility] Stress Patient Status: Inpatient Admit Date: 06/26/2022 Staff Ordering Physician: Guido Fraire MD Attending Provider: Johan Carrasquillo MD Exercise Technologist: Lucila Floyd, VILMA Nurse: troy ambrosio Exam Type: CA stress yvonne w NM Study Info Indications 790.99 - elevated troponin A regadenoson stress test was performed. Summary 1. No abnormal ST/T wave changes with Lexiscan administration. 2. No arrhythmias were observed during the examination. 3. No chest discomfort with stress test. 4. Please correlate with nuclear medicine images, reported separately. Protocol: Lexiscan Stress ECG Details Stage: REST Duration (min): 2 min : 30 sec HR (bpm): 63 SBP (mmHg): 216 DBP (mmHg): 97 Stage: REST Duration (min): 11 min : 31 sec HR (bpm): 69 SBP (mmHg): 207 DBP (mmHg): 101 Stage: STAGE 1 Duration (min): 1 min : 0 sec HR (bpm): 86 SBP (mmHg): 207 DBP (mmHg): 101 Stage: RECOVERY Duration (min): 1 min : 0 sec HR (bpm): 89 SBP (mmHg): 207 DBP (mmHg): 101 Stage: RECOVERY Duration (min): 2 min : 0 sec HR (bpm): 84 SBP (mmHg): 207 DBP (mmHg): 101 Stage: RECOVERY Duration (min): 3 min : 0 sec HR (bpm): 83 SBP (mmHg): 207 DBP (mmHg): 101 Stage: RECOVERY Duration (min): 3 min : 17 sec HR (bpm): 77 SBP (mmHg): 189 DBP (mmHg): 101 Rest HR: 69 bpm Peak HR: 91 bpm Rest Sys BP: 207 mmHg Peak Sys BP: 189 mmHg Max Pred HR: 150 bpm % Max Pred HR: 61 % Target HR: 128 bpm Max RPP: 17,199 bpm*mmHg BP Response: Normal blood pressure response Termination Reason: Completed protocol Cardiac Symptoms: None Total Time: 1 min : 0 sec Rest Smith BP: 101 mmHg Peak Smith BP: 101 mmHg Total Dose: 0.4 mg Resting ECG Normal sinus rhythm - normal ECG. Stress ECG No abnormal ST/T wave changes with Lexiscan administration. Arrhythmias No arrhythmias were observed during the examination. Report Signatures
[2022-06-27] MEDS: LEVOTHYROXINE SODIUM 50 MCG TABLET PO (06:39)
[2022-06-27] MEDS: predniSONE 10 MG TABLET PO ×2 (09:17→12:26)
[2022-06-27] MEDS: FERROUS SULFATE 324 MG TABLET PO (09:17)
[2022-06-27] MEDS: PREGABALIN (*CRX) 75 MG CAPSULE PO (09:17)
--- NOTE | 2022-06-27 11:33 | PM.PNCARD ---
Progress Note: A&P Assessment and Plan (1) Cardiac arrest: Code(s): I46.9 - Cardiac arrest, cause unspecified <FIDEL Davey - Last Filed: 06/27/22 14:43> Status: Acute <FIDEL Davey - Last Filed: 06/27/22 14:43> Assessment and Plan: Etiology unknown. Echo showed hyperdynamic LV systolic function with LVH, no focal wall motion abnormalities EF 70-75% and grade II diastolic dysfunction. Stress test performed this morning did not show any infarct or ischemia. Will arrange for patient to go home with 30 day shelter monitor from our office. OK for discharge from a cardiac standpoint. <FIDEL Davey - Last Filed: 06/27/22 14:43> (2) Elevated troponin: Code(s): R77.8 - Other specified abnormalities of plasma proteins <FIDEL Davey - Last Filed: 06/27/22 14:43> Status: Acute <FIDEL Davey - Last Filed: 06/27/22 14:43> Assessment and Plan: Mild elevation not consistent with a significant infarction most likely demand ischemia. Continue telemetry. <FIDEL Davey - Last Filed: 06/27/22 14:43> (3) Peripheral arterial disease: Code(s): I73.9 - Peripheral vascular disease, unspecified <FIDEL Davey - Last Filed: 06/27/22 14:43> Status: Acute <FIDEL Davey - Last Filed: 06/27/22 14:43> Assessment and Plan: On statin <FIDEL Davey - Last Filed: 06/27/22 14:43> (4) Hypertension: Code(s): I10 - Essential (primary) hypertension <FIDEL Davey - Last Filed: 06/27/22 14:43> Status: Acute <FIDEL Davey - Last Filed: 06/27/22 14:43> Assessment and Plan: Hemodynamically stable. <FIDEL Davey - Last Filed: 06/27/22 14:43> (5) Dyslipidemia: Code(s): E78.5 - Hyperlipidemia, unspecified <FIDEL Davey - Last Filed: 06/27/22 14:43> Status: Acute <FIDEL Davey - Last Filed: 06/27/22 14:43> Assessment and Plan: On statin <FIDEL Davey - Last Filed: 06/27/22 14:43> (6) Anemia: Qualifiers: Anemia type: iron deficiency Iron deficiency anemia type: unspecified iron deficiency Qualified Code(s): D50.9 - Iron deficiency anemia, unspecified <FIDEL Davey - Last Filed: 06/27/22 14:43> Code(s): D64.9 - Anemia, unspecified <FIDEL Davey - Last Filed: 06/27/22 14:43> Status: Acute <FIDEL Davey - Last Filed: 06/27/22 14:43> Assessment and Plan: Stable. Follow H&H. <FIDEL Davey - Last Filed: 06/27/22 14:43> (7) Polymyalgia rheumatica: Code(s): M35.3 - Polymyalgia rheumatica <FIDEL Davey - Last Filed: 06/27/22 14:43> Status: Acute <FIDEL Davey - Last Filed: 06/27/22 14:43> Assessment and Plan: As above. Defer management to primary service. She remains on prednisone. <FIDEL Davey - Last Filed: 06/27/22 14:43> Assessment and Plan: Attending Addendum: I agree with the above documentation and plan of care as outlined. Thirty day shelter monitor upon discharge. <Guido Fraire MD - Last Filed: 06/27/22 17:06> Subjective Date/time seen: 06/27/22 11:33 Cardiology follow up for syncope, cardiac arrest Feels well this morning and has no complaints. No chest pain or shortness of breath. <FIDEL Davey - Last Filed: 06/27/22 14:43> Review of Systems Review of Systems: All systems reviewed & are unremarkable except as noted in HPI and below <FIDEL Davey - Last Filed: 06/27/22 14:43> Constitutional: Constitutional: Reports as per HPI and Reports no additional constitutional complaints <FIDEL Davey - Last Filed: 06/27/22 14:43> Eyes: Eyes: Reports as per HPI and Reports no additional eye complaints <FIDEL Davey - Last Filed: 06/27/22 14:43> ENT: Reports system reviewed an
--- NOTE | 2022-06-27 13:45 | PM.DS ---
DS: Admitting Diagnosis Discharge Date 06/27/22 Admitting Diagnosis syncope vs cardiac arrest DS: Discharge Diagnosis Discharge Diagnosis (1) Syncope: Code(s): R55 - Syncope and collapse Status: Acute Assessment and Plan: Syncope verses possible cardiac arrest. Workup thus far has an pretty unremarkable and EKG does not show any acute findings. She remains bradycardic in the 50s though she is asymptomatic with that and her blood pressures have been stable. She has and he admitted to IMU and will ask Cardiology to see her in consultation. Echocardiogram and carotid Doppler ultrasounds have been ordered for further evaluation. Ischemic workup pending. (2) Elevated lactic acid level: Code(s): R79.89 - Other specified abnormal findings of blood chemistry Status: Acute Assessment and Plan: Likely due to hypoperfusion related to above. No history to suggest active infection. (3) Elevated LFTs: Code(s): R79.89 - Other specified abnormal findings of blood chemistry Status: Acute Assessment and Plan: Abdominal exam is benign. May be related to above. Repeat in a.m.. (4) Peripheral arterial disease: Code(s): I73.9 - Peripheral vascular disease, unspecified Status: Acute Assessment and Plan: Status post left upper extremity stent. Continue aspirin and clopidogrel. (5) Hypertension: Code(s): I10 - Essential (primary) hypertension Status: Acute Assessment and Plan: Blood pressures have been stable in fact a bit elevated. Continue antihypertensives and monitor closely. (6) Dyslipidemia: Code(s): E78.5 - Hyperlipidemia, unspecified Status: Acute Assessment and Plan: Not on a statin for unclear reasons. Check lipids in a.m. (7) Polymyalgia rheumatica: Code(s): M35.3 - Polymyalgia rheumatica Status: Acute Assessment and Plan: Continue prednisone. (8) Chronic kidney disease, stage 3: Code(s): N18.30 - Chronic kidney disease, stage 3 unspecified Status: Acute Assessment and Plan: Renal function is stable on review of previous labs. DS: Summary Hospital Course Hospital Course: patient admitted for syncope vs cardiac arrest. cardiac henson unrevealing - will be set up with event monitor prior to dc. Fu cardiology and pcp. Time Spent with Patient Time attestation: Total time spent providing and/or coordinating discharge services: Exam Const: Other: Well-developed, nontoxic-appearing female sitting in bed no distress. Weight: 93.7 kilograms. BMI: 37.8. HENMT: Other: Normocephalic, atraumatic. Nares pain bilaterally. Oral mucosa moist. Oropharynx clear. Eyes: Other: Pupils are reactive. Extraocular motions intact. Sclerae anicteric. Neck: Other: Supple. No JVD. Faint bilateral carotid bruits. Chest: Other: No bruising or erythema over the chest wall. Resp: Other: Respirations are nonlabored. Fine crackles at the left base otherwise clear to auscultation. Cardio: Other: Bradycardic with normal S1-S2. GI: Other: Abdomen is soft, nontender, and nondistended with positive bowel sounds. Skin: Other: Warm and dry. There is a bruise on the lateral aspect of the right scapula. Neuro: Other: Alert and oriented x4. Cranial nerves 2-12 grossly intact. No gross focal deficits to casual conversation. Extrem: Other: No cyanosis, clubbing, or significant edema. Pulses palpable. No palpable knots or cords. Negative Jordana sign bilaterally. Psych: Other: Pleasant and cooperative with appropriate mood and affect. She is in good spirits. Discharge Plan Discharge Attending physician on discharge: Marko Alvarez Consulting providers: Guido Fraire Discharging Clinician: Marko Alvarez. Patient Disposition: Home, Self-Care Activity: no preference Diet: as tolerated Patient Instructions: Antibiotic Form St
== END 2022-06-27 15:00 | disposition home or self-care (01) | DRG 312 ==
LOC: ANHED 11:37 → ANH3MEDSUR 14:42 → ANHIMU 20:52
PROVIDERS: Internal Medicine Cardiovascular Disease; Physician Assistant; Admitting Provider Family Medicine; Emergency Provider Emergency Medicine; PCP Family Medicine; Visit Provider Chiropractor
DX: R55 Syncope and collapse (principal); I46.9 Cardiac arrest, cause unspecified; E87.20 Acidosis, unspecified; I25.10 Atherosclerotic heart disease of native coronary artery without angina pectoris; I12.9 Hypertensive chronic kidney disease with stage 1 through stage 4 chronic kidney disease, or unspecified chronic kidney disease; N18.30 Chronic kidney disease, stage 3 unspecified; D50.9 Iron deficiency anemia, unspecified; D05.91 Unspecified type of carcinoma in situ of right breast; E78.5 Hyperlipidemia, unspecified; E03.9 Hypothyroidism, unspecified; R77.8 Other specified abnormalities of plasma proteins; R09.89 Other specified symptoms and signs involving the circulatory and respiratory systems; M35.3 Polymyalgia rheumatica; M19.90 Unspecified osteoarthritis, unspecified site; F41.9 Anxiety disorder, unspecified; Z20.822 Contact with and (suspected) exposure to COVID-19; Z79.82 Long term (current) use of aspirin; Z79.810 Long term (current) use of selective estrogen receptor modulators (SERMs); Z90.49 Acquired absence of other specified parts of digestive tract
CPT/HCPCS: 36415; 70450; 71045; 78452; 80053; 83605; 83735; 83880; 84443; 84484; 85025; 85027; 85610; 85730; 87636; 93005; 93017; 96374; 99285; A9270; A9502; C8929; G0378; J2785; J7512; Q9957

== ENCOUNTER 2022-08-28 01:34 | Day surgery (SDC) | payer OTHER, SELFPAY ==
[2022-08-25 13:36] VITALS: BMI 41.6
[2022-08-28 08:57] VITALS: BP 157/89; PULSE 85; RESP 14; TEMP 36.3; O2SAT 99; BMI 39.8
--- NOTE | 2022-08-28 09:58 | P.OPB_ITS ---
Procedure Note - Brief Procedure Note - Brief Date of procedure: 08/28/22 Pre-op diagnosis: syncope Syncope Post-op diagnosis: Same Procedure performed: loop recorder implantation Description of procedure: Brief History of Present Illness: Patient is a very pleasant 71-year-old female with past medical history significant for peripheral arterial disease status post left subclavian angioplasty and stenting 2008, hypertension, hyperlipidemia, polymyalgia rheumatica, breast cancer on tamoxifen, hypothyroidism presented [facility] 06/26/2022 after witnessed collapse at home which point her began CPR without success until he delivered a precordial thump at which time she was immediately resuscitated. Workup thus far was unrevealing with negative ischemic evaluation, preserved LV systolic function but without an explanation thus far. She wore 3 day clinical research monitor which was unrevealing and subsequently was referred for loop recorder implantation for further observation management. After verbal and written informed consent was obtained from the patient risks, benefits, and alternatives explained in detail the patient agreed to proceed with the plan of care as outlined above. Patient was evaluated at bedside in the [facility] procedure room. Patient was placed the appropriate supine position. Left anterior chest wall was prepped and draped in the usual sterile fashion. Operators in appropriate sterile garb. The left 4th intercostal space was identified and marked. Utilizing approximately 25 cc of 1% subcutaneous lidocaine the left anterior chest wall was then locally anesthetized. After local anesthesia was achieved, 2 fingerbreadths left of the sternum at the 4th intercostal space was again identified and a 1 cm incision was made with the included skin punch tool. Following this with the included introducer, a tract was made subcutaneously at a 45 degree angle from the sternum. The introducer was then inverted 180 degrees and with the included plunger the Medtronic REVEAL LINQ II loop recorder was advanced subcutaneously into position easily and without complication. The plunger was then removed followed by the introducer. Manual pressure was held for least 5-10 min with excellent hemostasis. The device was then interrogated and revealed excellent fidelity and measured at 0.55 mV. The Medtronic REVEAL LINQ II SN [id number] was implanted without complication. The incision was then approximated and closed using Exofin skin adhesive. The incision was then covered with a sterile dressing. Complications: None Implants: Medtronic Reveal LINQ II implantable loop recorder Surgeon: Guido Fraire MD Estimated blood loss (mL): 0 Complications: No immediate complications Condition: Stable Disposition: Same day Findings: Successful implantation of Adnexus LINQ II SN [id number] without complication. Recommendations: Follow post implant precautions as instructed including 1 week wound check as scheduled in the office.
--- NOTE | 2022-08-28 09:58 | WPDHPUPDATE1 ---
History and Physical Update Update Date/Time: 08/28/22 09:58 History and Physical has been reviewed, including an updated exam of the patient. There are NO changes in the patient's condition. Risks, benefits, and alternatives have been discussed and questions answered. Patient agrees to proceed with procedure.
[2022-08-28 10:20] VITALS: BP 158/76; PULSE 87; RESP 19; O2SAT 99
[2022-08-28 10:25] VITALS: BP 156/82; PULSE 85; RESP 18; O2SAT 99
[2022-08-28 10:46] VITALS: BP 128/91; PULSE 77; RESP 18; O2SAT 99
--- NOTE | 2022-08-28 10:46 | SUR.OPER ---
loop implant: start 1020 stop 1025 1% lidocaine 25mls surgical glue and bandaid applied
--- NOTE | 2022-08-28 11:07 | SUR.OPER ---
discharge instructions given with at bedside. all questions and concerns address. wound care instructions given and wound check follow up for next sunday set. patient able to walk to vehicle.
== END 2022-08-28 11:07 | disposition home or self-care (01) ==
PROVIDERS: PCP Family Medicine; Visit Provider Internal Medicine Cardiovascular Disease
PROC: (CPT 33285; principal; 2022-08-28 10:00)
DX: R55 Syncope and collapse (principal); I10 Essential (primary) hypertension; E78.5 Hyperlipidemia, unspecified; M35.3 Polymyalgia rheumatica; D50.9 Iron deficiency anemia, unspecified; E03.9 Hypothyroidism, unspecified; I73.9 Peripheral vascular disease, unspecified; Z85.3 Personal history of malignant neoplasm of breast; Z79.810 Long term (current) use of selective estrogen receptor modulators (SERMs); Z79.51 Long term (current) use of inhaled steroids; Z79.82 Long term (current) use of aspirin; Z79.02 Long term (current) use of antithrombotics/antiplatelets
CPT/HCPCS: 33285; C1764; J0360

== ENCOUNTER 2022-11-09 15:19 | Outpatient (CLI) | payer OTHER, SELFPAY ==
--- NOTE | ~2022-11-09 | CT_ITS ---
EXAMINATION:CT diagnostic chest wo con DATE: 11/09/2022 15:34 INDICATION: Paratracheal nodule. TECHNIQUE: Computed tomography (CT) of the chest was performed without intravenous contrast. Automate d exposure control and iterative reconstruction technique were employed. The dose-length product (DLP ) was 344.42 mGy-cm. COMPARISON: Chest CT 06/08/2014 FINDINGS: There is a pneumatocele in left lower lobe. There is peripheral scarring in left upper lobe , likely radiation fibrosis. There are chronic mild groundglass opacities in all lobes with a perihil ar bronchovascular predominance. No bronchiectasis. There are 4 mm and 5 mm nodules in left lower lob e, stable from 06/08/14. No pleural effusion. There is a stent in proximal left subclavian artery. The re is an electronic subcutaneous implant in left anterior chest wall. The heart size is normal. No pe ricardial effusion. There are changes of cholecystectomy. The liver demonstrates surface nodularity a nd hypertrophy of left lateral segment, consistent with cirrhosis. There are old healed rib fractures bilaterally. There is severe cervical spondylosis and moderate thoracic spondylosis. IMPRESSION: 1. Mild chronic lung disease. 2. Cirrhosis of the liver. Reviewed, dictated and finalized at location E.
== END 2022-11-09 15:20 | disposition home or self-care (01) ==
LOC: ANHIMG 15:20
PROVIDERS: PCP Family Medicine; Visit Provider Family Medicine
DX: J39.8 Other specified diseases of upper respiratory tract (principal); K74.60 Unspecified cirrhosis of liver
CPT/HCPCS: 71250

== ENCOUNTER 2023-04-05 16:31 | Emergency (ER) | payer OTHER, SELFPAY ==
[2023-04-05] VITALS (16 sets, daily range): BP systolic 108–168; BP diastolic 60–98; PULSE 83–120; RESP 12–20; TEMP 36.6–37.8; O2SAT 94–100
--- NOTE | ~2023-04-05 | CT_ITS ---
EXAMINATION: CT brain wo con DATE: 04/05/2023 21:11 INDICATION: Confusion. TECHNIQUE: Computed tomography (CT) of the head was performed without intravenous contrast. The mA wa s adjusted according to patient size. Iterative reconstruction technique was employed. The dose-lengt h product was 605.33 mGy-cm. COMPARISON: Head CT 06/24/2022 FINDINGS: There is no intracranial hemorrhage, acute infarction, or abnormal intracranial mass lesion . There are scattered areas of low attenuation in the cerebral white matter, which is within normal l imits for the patient's age. The ventricles are normal in size. The orbits are normal. There is mild mucosal thickening in the paranasal sinuses. The mastoid air cells are normal. IMPRESSION: 1. Normal aging brain. Reviewed, dictated and finalized at location E. IMPRESSION: 1. Normal aging brain.
--- NOTE | ~2023-04-05 | CT_ITS ---
EXAMINATION: CT abdomen pelvis w con DATE: 04/05/2023 21:12 INDICATION: Fever. Leukocytosis. TECHNIQUE: Computed tomography (CT) of the abdomen and pelvis was performed with 100 mL Omnipaque 350 intravenous contrast. Automated exposure control and iterative reconstruction technique were employe d. The dose-length product was 1329.77 mGy-cm. COMPARISON: Chest CT 11/09/2022 FINDINGS: The visualized portions of the lung bases demonstrate mild chronic lung disease. There is a chronic 5 mm nodule in left lower lobe, likely benign. No pleural effusion. The heart size is normal . No pericardial effusion. There is liver surface nodularity. The spleen is normal. There are changes of cholecystectomy. The pancreas and adrenal glands are normal. There is cortical thinning of the ki dneys. There is a periumbilical ventral hernia containing fat. There is prominent fat in left inguina l canal that may a hernia. There are no dilated loops of bowel. There is a lipoma in the ascending co ophelia. There is a lipoma in the duodenum. The appendix is normal. There is moderate thoracic spondylosi s and mild lumbar spondylosis. IMPRESSION: 1. Periumbilical ventral hernia containing fat. 2. Liver surface nodularity suspicious for cirrhosis. Reviewed, dictated and finalized at location E.
--- NOTE | ~2023-04-05 | XR_ITS ---
EXAMINATION: XR chest 2V DATE: 04/05/2023 19:25 INDICATION: Fever. TECHNIQUE: Frontal and lateral views of the chest were obtained. COMPARISON: Chest single view 06/24/2022, chest CT 11/09/2021 FINDINGS: There is mild peripheral radiation fibrosis in left lung. There is no pneumonia, pleural ef fusion, or pneumothorax. The heart size is normal. Surgical clips in the right upper quadrant are lik nabil from cholecystectomy. There is electronic implant in left anterior chest wall. IMPRESSION: 1. Mild peripheral radiation fibrosis in left lung. Reviewed, dictated and finalized at location E.
[2023-04-05] MEDS: ACETAMINOPHEN 500 MG TABLET 1000 MG PO (19:17)
--- NOTE | 2023-04-05 19:17 | ED.FEMALEGU ---
HPI - Female Genitourinary General Chief complaint: Urogenital-Female Stated complaint: UTI- confusion Time Seen by Provider: 04/05/23 18:33 Source: patient and family Mode of arrival: wheelchair Limitations: no limitations History of Present Illness HPI Narrative: This is a 72 year old female that presents to the ER for confusion today. Patient's brought her in for evaluation due to generalized weakness and some confusion today. Reports this usually happens when she has a UTI. Reports frequent UTIs. She sees our Urologists at [place] for this. Reports she has had a cough since yesterday. Noted to be febrile in the ED. Denies shortness of breath, abdominal pain, vomiting or hematuria. Related Data Home Medications Medication Instructions Recorded Confirmed aspirin 81 mg tablet,delayed 81 mg PO QHS 10/24/19 12/18/22 release cetirizine 10 mg tablet (Zyrtec) 10 mg PO QHS 10/24/19 12/18/22 cholecalciferol (vitamin D3) 25 25 mcg PO QHS 10/24/19 12/18/22 mcg (1,000 unit) capsule tamoxifen 20 mg tablet 20 mg PO QHS 10/24/19 12/18/22 clopidogrel 75 mg tablet (Plavix) 75 mg PO QHS 01/29/20 12/18/22 ursodiol 250 mg tablet 750 mg PO QHS 09/15/20 12/18/22 ferrous sulfate 325 mg (65 mg 325 mg PO BID 04/24/22 12/18/22 iron) tablet,delayed release cranberry 25,000 mg PO DAILY 08/25/22 12/18/22 Allergies Allergy/AdvReac Type Severity Reaction Status Date / Time amoxicillin Allergy Unknown Upset Verified 04/05/23 16:33 stomach Review of Systems Review of Systems: CONSTITUTIONAL: Reports fever ENT: Reports congestion, sore throat CARDIOVASCULAR: Denies chest pain RESPIRATORY: Reports cough. Denies dyspnea. GASTROINTESTINAL: Denies abdominal pain, nausea, vomiting GENITOURINARY: Denies dysuria or hematuria. All systems reviewed & are unremarkable except as noted in HPI and below PMFSH Past Medical History Medical History (Updated 04/05/23 @ 22:59 by Wilda Che PA-C) Anxiety Bilateral leg cramps Breast cancer Left breast cancer proximally 21 years ago status post lumpectomy and chemoradiation. Right breast cancer (in situ) approximately 3 years ago status post lumpectomy, currently on tamoxifen. Bronchiolitis obliterans organizing pneumonia Bruit of right carotid artery Chronic kidney disease, stage 3 Dyslipidemia Hypertension Liver cirrhosis Osteoarthritis Peripheral arterial disease Polymyalgia rheumatica Skin lesion of face Status post placement of implantable loop recorder Tracheal mass Surgical History Surgical History History of section History of cholecystectomy History of hysterectomy History of vascular surgery Left upper extremity stent. Family History Family History Father Hypertension Patient's father is , Onset Age: 52 Cerebrovascular accident Mother Family history of diabetes mellitus in first degree relative Family history of pancreatic cancer Family history of primary malignant neoplasm of liver Patient's mother is , Onset Age: 64 Sibling Malignant neoplasm of prostate Daughter Breast cancer H/O mastectomy Social History Social History Social History: Surrogate medical decision maker: Thomas Garces, spouse. Code status: Full code. Smoking status: Never smoker Second hand tobacco smoke exposure: No Alcohol intake: never Substance use: never Substance use type: does not use Lack of Transportation: No Lack of Food: Never True Current Housing: I Have Housing Concerned About Future Housing: No Difficulty Paying Gas/Electric Bills: No Difficulty Paying for Meds: No Currently Unemployed: YES Education: Bachelor's Degree Difficulty w/ Childcare or Family Care: No Living arrangements: with family Additional living arrangemen
[2023-04-05 19:19] LABS: Basophils Absolute Auto 0.1 K/mm3 (0.0-0.1); Basophils Percent Auto 0.5 % (0.2-1.2); Hematocrit 46.5 % (37.0-47.0); Hemoglobin 14.6 g/dL (12.0-15.0); Immature Granulocyte Absolute 0.07 K/mm3 (0.00-0.031); Immature Granulocyte Percent A 0.4 % (0-0.5); Lymphocytes Absolute Auto 1.76 K/mm3 (0.9-3.2); Lymphocytes Percent Auto 10.7 % (18.3-44.2); Mean Corpuscular HGB Conc 31.4 g/dl (32-36); Mean Corpuscular Hemoglobin 28.1 pg (26-34); Mean Corpuscular Volume 89.4 fl (80-100); Mean Platelet Volume 10.3 fl (7.4-10.4); Monocytes Absolute Auto 0.8 K/mm3 (0.1-0.6); Monocytes Percent Auto 4.9 % (2.6-8.5); Neutrophils Absolute Auto 13.7 K/mm3 (1.3-6.7); Neutrophils Percent Auto 83.5 % (45.5-73.1); Platelet Count Result 263 k/mm3 (150-375); Red Cell Distribution Width 14.6 % (11.5-14.5); White Blood Count 16.5 K/mm3 (4.5-10.0)
[2023-04-05 19:20] LABS: Appearance Urine Clear (Clear); Bilirubin Urine Negative (Negative); Blood Urine Negative (Negative); Color Urine Yellow (Yellow); Glucose Urine UA Negative (Negative); Ketones Urine Negative (Negative); Leukocyte Esterase Ur Negative LEU/UL (Negative); Nitrate Urine Negative (Negative); Protein Urine Negative (Negative); Specific Grav Ur 1.018 (1.001-1.035); pH Urine 5.5 (5.0-9.0)
[2023-04-05 19:27] LABS: Add Urine Microscopic? NO
[2023-04-05 19:28] LABS: Lactic Acid Reflex 1.9 mmol/L (0.7-2.0)
[2023-04-05 19:29] LABS: Alanine Aminotransferase 55 U/L (6-35); Albumin Level 4.7 g/dL (3.5-5.1); Alkaline Phosphatase 105 U/L (38-126); Anion Gap 12 mmol/L (8-16); Aspartate Amino Transferase 65 U/L (14-36); Bilirubin,Total 1.4 mg/dL (0.2-1.3); Blood Urea Nitrogen 26 mg/dL (7-17); Calcium 9.6 mg/dL (8.4-10.2); Carbon Dioxide 24 mmol/L (22-30); Chloride 102 mmol/L (98-107); Estimated CRCL calculation 46 ml/min; Estimated Glomerular Filt Rate 49; Glucose 123 mg/dL (65-110); Potassium 4.2 mmol/L (3.4-5.0); Sodium 138 mmol/L (137-145)
[2023-04-05 19:31] LABS: Prothrombin Time 14.1 Seconds (11.1-14.7)
[2023-04-05 19:32] LABS: Partial Thromboplastin Time 25.8 SECONDS (22.3-36.8)
[2023-04-05] MEDS: SODIUM CHLORIDE 0.9% IV 500 ML 999 ML IV CONT (19:45)
[2023-04-05 20:07] LABS: Influenza A QL RT-PCR Negative (Negative); Influenza B QL RT-PCR Negative (Negative); SARS-CoV-2 RNA PCR Positive (Negative)
[2023-04-05 21:09] LABS: CRP 3.7 mg/dL (<1.0)
[2023-04-06 00:12] LABS: Procalcitonin 0.2 ng/mL
== END 2023-04-05 23:19 | disposition home or self-care (01) ==
PROVIDERS: Preventive Medicine Aerospace Medicine; Emergency Provider Physician Assistant; PCP Family Medicine
DX: U07.1 COVID-19 (principal); E78.5 Hyperlipidemia, unspecified; I10 Essential (primary) hypertension; I73.9 Peripheral vascular disease, unspecified; K74.60 Unspecified cirrhosis of liver; M19.90 Unspecified osteoarthritis, unspecified site; M35.3 Polymyalgia rheumatica; Z90.49 Acquired absence of other specified parts of digestive tract; Z90.710 Acquired absence of both cervix and uterus; Z85.3 Personal history of malignant neoplasm of breast; Z92.3 Personal history of irradiation; Z92.21 Personal history of antineoplastic chemotherapy; Z87.01 Personal history of pneumonia (recurrent); Z79.02 Long term (current) use of antithrombotics/antiplatelets; Z79.82 Long term (current) use of aspirin; Z79.810 Long term (current) use of selective estrogen receptor modulators (SERMs); K43.9 Ventral hernia without obstruction or gangrene; J70.1 Chronic and other pulmonary manifestations due to radiation
CPT/HCPCS: 36415; 70450; 71046; 74177; 80053; 81003; 82728; 83605; 84145; 85025; 85610; 85730; 86140; 87040; 87636; 96360; 99284; A9270; J7040; Q9967

== ENCOUNTER 2023-06-19 10:34 | Outpatient (CLI) | payer OTHER, SELFPAY ==
--- NOTE | ~2023-06-19 | XR_ITS ---
EXAMINATION: XR shoulder RT min 2V INDICATION: Other specified joint disorders, right shoulder pain TECHNIQUE: Four views of the right shoulder are submitted. COMPARISON: None FINDINGS: Normal alignment. No fracture. There is mild osteoarthritis of the acromioclavicular joint and moderate osteoarthritis of the glenohumeral joint. Soft tissues are unremarkable. IMPRESSION: 1. Osteoarthritis without acute osseous abnormality. Reviewed, dictated and finalized at location L. RMATICS ANALYST
== END 2023-06-19 10:35 ==
PROVIDERS: PCP Orthopaedic Surgery; Visit Provider Family Medicine
DX: M19.011 Primary osteoarthritis, right shoulder (principal)
CPT/HCPCS: 73030

== ENCOUNTER 2023-08-19 08:55 | Emergency (ER) | payer OTHER, SELFPAY ==
--- NOTE | ~2023-08-19 | CT_ITS ---
EXAMINATION: CT cervical spine wo con DATE: 08/19/2023 09:30 INDICATION: Head injury post op slip on ice TECHNIQUE: Computed tomography (CT) of the cervical spine was performed without intravenous contrast. Automated exposure control and iterative reconstruction technique were employed. The dose-length pro duct was 479.32 mGy-cm. COMPARISON: None FINDINGS: Straightening of the normal cervical lordosis which could be positional or due to muscle spasm. Moder ate osteoarthritis at the atlantoaxial articulation. Vertebral body heights are normal. No fracture. Severe disc height loss with severe bilateral uncovertebral osteoarthritis at C5-C6 and with more sev ere left and moderate right uncovertebral osteoarthritis at C6-C7. Associated mild disc bulges result ing in mild central canal stenosis at each of these levels. There is mild disc height loss at remaini ng cervical levels. Additional moderate uncovertebral osteoarthritis on the right at C3-C4. There is multilevel bilateral mild cervical facet osteoarthritis. There is mild neural foraminal stenosis on t he right at C3-C4 and C5-C6 and on the left at C5-C6. Mild left apical pleural-parenchymal scarring. Visualized cervical soft tissues are unremarkable. IMPRESSION: 1. Severe lower cervical spondylosis. No acute osseous abnormality. Reviewed, dictated and finalized at location A. RT CLERK
--- NOTE | ~2023-08-19 | XR_ITS ---
EXAMINATION: XR heel RT min 2V DATE: 08/19/2023 09:26 INDICATION: Right heel pain with weight-bearing post fall one day prior TECHNIQUE: Lateral and axial views of the right calcaneus were obtained. COMPARISON: None. FINDINGS: Bone alignment is normal. No fracture. Osteoarthritis at the first metatarsophalangeal joint, mild at the metatarsophalangeal articulation proper and moderate at the articulation with the sesamoids. Mod erate-sized plantar calcaneal spur. Soft tissues are unremarkable with no ankle joint effusion. IMPRESSION: 1. No acute osseous abnormality. Reviewed, dictated and finalized at location A. ESS TRAINER
--- NOTE | ~2023-08-19 | CT_ITS ---
EXAMINATION: CT brain wo con DATE: 08/19/2023 09:30 INDICATION: Head injury post slip on ice TECHNIQUE: Computed tomography (CT) of the head was performed without intravenous contrast. Sagittal and coronal reconstructions were performed. The mA was adjusted according to patient size. Iterative reconstruction technique was employed. The dose-length product was 529.67 mGy-cm. COMPARISON: head CT dated 04/05/2023 FINDINGS: No fracture. No acute intracranial hemorrhage, acute infarction or abnormal extra axial fluid collect ion. Symmetric prominence of the sulci and and subarachnoid spaces overlying the convexities consiste nt with mild age-appropriate diffuse cerebral volume loss. Ventricles are normal and symmetric. No ma ss/mass effect. The orbits, paranasal sinuses and mastoid air cells are normal. IMPRESSION: 1. No fracture or acute intracranial process. Reviewed, dictated and finalized at location A. GER TRAFFIC
[2023-08-19 09:04] VITALS: BP 155/65; PULSE 100; RESP 14; TEMP 36.6; O2SAT 99
--- NOTE | 2023-08-19 09:22 | ED.FALL ---
HPI - Fall General Chief Complaint: Fall Stated Complaint: fall, R foot pain Time Seen by Provider: 08/19/23 08:57 Source: patient Mode of arrival: ambulatory Limitations: no limitations History of Present Illness HPI Narrative: Patient is a 72 y/o female who presents to the ED with c/o R heel pain. Patient reports she slipped on a patch of ice last night. She slid with her right heel outward, hitting her left knee on the ground and then hitting her head against her car. Denied LOC. She complains of pain to her right heel. She states she has had difficulty ambulating due to the pain. She is able to ambulate but does have pain with this. Has been taking motrin for pain. Denies pain to L knee. Denies dizziness, lightheadedness, vision changes, nausea, vomiting, neck or back pain, chest pain, difficulty breathing. Patient is not on any blood thinners. She does take aspirin 81 mg daily. Related Data Home Medications Medication Instructions Recorded Confirmed aspirin 81 mg tablet,delayed 81 mg PO QHS 10/24/19 07/27/23 release cetirizine 10 mg tablet (Zyrtec) 10 mg PO QHS 10/24/19 07/27/23 cholecalciferol (vitamin D3) 25 25 mcg PO QHS 10/24/19 07/27/23 mcg (1,000 unit) capsule tamoxifen 20 mg tablet 20 mg PO QHS 10/24/19 07/27/23 ursodiol 250 mg tablet 750 mg PO QHS 09/15/20 07/27/23 ferrous sulfate 325 mg (65 mg 325 mg PO BID 04/24/22 07/27/23 iron) tablet,delayed release rosuvastatin 10 mg tablet (Crestor) 20 mg PO DAILY 06/18/23 07/27/23 Allergies Allergy/AdvReac Type Severity Reaction Status Date / Time amoxicillin Allergy Unknown Upset Verified 07/27/23 13:17 stomach Review of Systems Review of Systems: CONSTITUTIONAL: Denies fever, chills, or sweats. ENT: Denies vision changes. CARDIOVASCULAR: Denies chest pain. RESPIRATORY: Denies dyspnea. GASTROINTESTINAL: Denies abdominal pain, nausea, vomiting. MUSCULOSKELETAL: See HPI. NEUROLOGIC: See HPI. All systems reviewed & are unremarkable except as noted in HPI and below PMFSH Past Medical History Medical History Anxiety Bilateral leg cramps BMI 40.0-44.9, adult BMI 45.0-49.9, adult Breast CA Breast cancer Left breast cancer proximally 21 years ago status post lumpectomy and chemoradiation. Right breast cancer (in situ) approximately 3 years ago status post lumpectomy, currently on tamoxifen. Bronchiolitis obliterans organizing pneumonia Bruit of right carotid artery Cardiac arrest Chronic kidney disease, stage 3 COVID-19 Dyslipidemia Elevated troponin Hypertension Impingement of right shoulder Morbid obesity Osteoarthritis Peripheral arterial disease Polymyalgia rheumatica Skin lesion of face Status post placement of implantable loop recorder Stenosis of brachiocephalic artery Subclavian artery stenosis, left Tracheal mass Surgical History Surgical History History of section History of cholecystectomy History of hysterectomy History of vascular surgery Left upper extremity stent. Family History Family History Father Hypertension Patient's father is , Onset Age: 52 Cerebrovascular accident Mother Family history of diabetes mellitus in first degree relative Family history of pancreatic cancer Family history of primary malignant neoplasm of liver Patient's mother is , Onset Age: 64 Sibling Malignant neoplasm of prostate Daughter Breast cancer H/O mastectomy Social History Social History Social History: Surrogate medical decision maker: Thomas Garces, spouse. Code status: Full code. Smoking status: Never smoker Second hand tobacco smoke exposure: No Alcohol intake: never Substance use: never Substance use type: does not use
[2023-08-19] MEDS: ACETAMINOPHEN 500 MG TABLET 1000 MG PO (10:16)
[2023-08-19] MEDS: IBUPROFEN 600 MG TABLET PO (10:16)
== END 2023-08-19 10:26 | disposition home or self-care (01) ==
PROVIDERS: Emergency Provider Physician Assistant; PCP Family Medicine
DX: S99.921A Unspecified injury of right foot, initial encounter (principal); S09.90XA Unspecified injury of head, initial encounter; I12.9 Hypertensive chronic kidney disease with stage 1 through stage 4 chronic kidney disease, or unspecified chronic kidney disease; N18.30 Chronic kidney disease, stage 3 unspecified; E78.5 Hyperlipidemia, unspecified; E66.01 Morbid (severe) obesity due to excess calories; Z68.42 Body mass index [BMI] 45.0-49.9, adult; I70.8 Atherosclerosis of other arteries; M35.3 Polymyalgia rheumatica; M19.90 Unspecified osteoarthritis, unspecified site; Z95.818 Presence of other cardiac implants and grafts; Z85.3 Personal history of malignant neoplasm of breast; Z86.16 Personal history of COVID-19; Z92.21 Personal history of antineoplastic chemotherapy; Z92.3 Personal history of irradiation; Z90.49 Acquired absence of other specified parts of digestive tract; Z90.710 Acquired absence of both cervix and uterus; Z79.810 Long term (current) use of selective estrogen receptor modulators (SERMs); Z79.82 Long term (current) use of aspirin; M47.812 Spondylosis without myelopathy or radiculopathy, cervical region; W00.0XXA Fall on same level due to ice and snow, initial encounter
CPT/HCPCS: 70450; 72125; 73650; 99284; A9270

== ENCOUNTER → 2023-09-18 14:32 | Outpatient (REF) | payer OTHER, SELFPAY | LOC: ANHLAB 14:32 | PROVIDERS: PCP Family Medicine; Visit Provider Plastic Surgery | DX: C44.519 Basal cell carcinoma of skin of other part of trunk (principal) | CPT/HCPCS: 88305 ==

== ENCOUNTER → 2023-10-02 14:08 | Outpatient (REF) | payer OTHER, SELFPAY | LOC: ANHLAB 14:08 | PROVIDERS: PCP Family Medicine; Visit Provider Physician Assistant Surgical | DX: C44.519 Basal cell carcinoma of skin of other part of trunk (principal) | CPT/HCPCS: 88305 ==

== ENCOUNTER 2024-02-29 01:06 | Day surgery (SDC) | payer OTHER, SELFPAY ==
[2024-02-11 14:55] VITALS: BMI 43.9
[2024-02-29 11:11] VITALS: BMI 43.7
[2024-02-29 11:14] VITALS: BP 151/86; PULSE 94; RESP 25; TEMP 36.3; O2SAT 97
[2024-02-29] MEDS: LACTATED RINGERS 1,000 ML 150 ML IV CONT (11:24)
--- NOTE | 2024-02-29 11:26 | WPDANESEPPF ---
Anes - Initial Pre Proc Eval Procedure: Operation Date: 02/29/24 13:00 Proposed Procedures p Colonoscopy - Oscar Harry MD Date/Time: 02/29/24 11:26 Surgeon: Oscar Harry MD Pre Op Diagnosis: other fecal abnormalities Patient Data Age: 73 Gender: F Height: 1.57 m Weight: 108.4 kg Last Vital Signs Temp 97.4 F L 02/29/24 11:14 Pulse 94 02/29/24 11:14 Resp 25 H 02/29/24 11:14 BP 151/86 H 02/29/24 11:14 Pulse Ox 97 02/29/24 11:14 O2 Del Method Room Air 02/29/24 11:14 Allergies Allergy/AdvReac Type Severity Reaction Status Date / Time amoxicillin Allergy Unknown Upset Verified 02/29/24 11:09 stomach ceftriaxone AdvReac Intermediate Rash Verified 02/29/24 11:09 Home Medications Medication Instructions Recorded Confirmed Type aspirin 81 mg tablet,delayed 81 mg PO QHS 10/24/19 02/29/24 History release ursodiol 250 mg tablet 750 mg PO QHS 09/15/20 02/29/24 History ferrous sulfate 325 mg (65 mg 325 mg PO BID 04/24/22 02/29/24 History iron) tablet,delayed release rosuvastatin 10 mg tablet (Crestor) 20 mg PO DAILY 06/18/23 02/29/24 History dapagliflozin propanediol 10 mg 10 mg PO DAILY #90 tabs 09/13/23 02/29/24 Rx tablet (Farxiga) scopolamine base 1 mg over 3 days 1 patch transdermal PRN #10 ea 09/26/23 02/29/24 Rx transdermal patch pregabalin 75 mg capsule (Lyrica) 75 mg PO BID #60 caps 10/29/23 02/29/24 Rx amlodipine 5 mg tablet 5 mg PO DAILY #90 tabs 12/17/23 02/29/24 Rx cetirizine 10 mg capsule (Zyrtec) 10 mg PO DAILY 12/17/23 02/29/24 History hydrochlorothiazide 25 mg tablet 25 mg PO DAILY #90 tabs 12/17/23 02/29/24 Rx albuterol sulfate 90 mcg/actuation 1 inh inhalation Q4H PRN shortness 12/24/23 02/29/24 Rx aerosol inhaler (ProAir HFA) of breath or wheezing #8.5 grams metoprolol succinate 50 mg 50 mg PO DAILY #90 tabs 12/26/23 02/29/24 Rx tablet,extended release 24 hr levothyroxine 50 mcg tablet See Rx Instructions .Route 01/01/24 02/29/24 Rx .COMPLEX #90 tabs prednisone 5 mg tablet 5 mg PO DAILY #90 tabs 01/22/24 02/29/24 Rx Patient hx anesthesia problems: none Family hx anesthesia problems: none Results Review: All pre-operative results and documents have been reviewed as part of the pre-operative evaluation. [facility] Past Medical History Medical History (Updated 12/18/23 @ 08:07 by Devon Villafana MD) Anxiety Atherosclerotic heart disease of [place] coronary artery without angina pectoris Bilateral leg cramps Bilateral leg edema BMI 40.0-44.9, adult Breast CA Breast cancer Left breast cancer proximally 21 years ago status post lumpectomy and chemoradiation. Right breast cancer (in situ) approximately 3 years ago status post lumpectomy, currently on tamoxifen. 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 Chronic kidney disease, stage 3 COVID-19 Diastolic congestive heart failure with preserved left ventricular function, NYHA class 2 Dyslipidemia Elevated troponin Hypertension Impingement of right shoulder Morbid obesity Osteoarthritis Peripheral arterial disease Polymyalgia rheumatica Primary biliary cirrhosis Skin lesion Skin lesion of face Status post placement of implantable loop recorder Stenosis of brachiocephalic artery Subclavian artery stenosis, left Tracheal mass Vitamin D deficiency Surgical History Surgical History History of section History of cholecystectomy History of hysterectomy History of vascular surgery Left upper extremity stent. Family History Family History Father Hypertension Patient's father is , Onset Age: 52 Cerebrovascular accident Mother Family history of diabetes mellitus in first degree relative Family history of pancreat
--- NOTE | 2024-02-29 12:04 | PM.HPGS ---
History of Present Illness History of Present Illness Consent: Risks, benefits, and alternatives have been discussed and questions answered. Patient agrees to proceed with procedure. Chief complaint: other fecal abnormalities Narrative: Radha Garces is a 73 year old female here for first colonoscopy, had + cologuard Review of Systems Review of Systems: All systems reviewed & are unremarkable except as noted in HPI and below PMFSH Past Medical History Medical History (Updated 12/18/23 @ 08:07 by Devon Villafana MD) Anxiety Atherosclerotic heart disease of [place] coronary artery without angina pectoris Bilateral leg cramps Bilateral leg edema BMI 40.0-44.9, adult Breast CA Breast cancer Left breast cancer proximally 21 years ago status post lumpectomy and chemoradiation. Right breast cancer (in situ) approximately 3 years ago status post lumpectomy, currently on tamoxifen. 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 Chronic kidney disease, stage 3 COVID-19 Diastolic congestive heart failure with preserved left ventricular function, NYHA class 2 Dyslipidemia Elevated troponin Hypertension Impingement of right shoulder Morbid obesity Osteoarthritis Peripheral arterial disease Polymyalgia rheumatica Primary biliary cirrhosis Skin lesion Skin lesion of face Status post placement of implantable loop recorder Stenosis of brachiocephalic artery Subclavian artery stenosis, left Tracheal mass Vitamin D deficiency Surgical History Surgical History History of section History of cholecystectomy History of hysterectomy History of vascular surgery Left upper extremity stent. Family History Family History Father Hypertension Patient's father is , Onset Age: 52 Cerebrovascular accident Mother Family history of diabetes mellitus in first degree relative Family history of pancreatic cancer Family history of primary malignant neoplasm of liver Patient's mother is , Onset Age: 64 Sibling Malignant neoplasm of prostate Daughter Breast cancer H/O mastectomy Social History Social History (Updated 12/17/23 @ 09:31 by Milena Baum) Social History: Surrogate medical decision maker: Thomas Garces, spouse. Code status: Full code. 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 Gender identity (if verbalized by the patient): Female Spiritual care concerns: No Agree to blood products: Yes Meds Home Medications and Allergies Home Medications Medication Instructions Recorded Confirmed Type aspirin 81 mg tablet,delayed 81 mg PO QHS 10/24/19 02/29/24 History release ursodiol 250 mg tablet 750 mg PO QHS 09/15/20 02/29/24 History ferrous sulfate 325 mg (65 mg 325 mg PO BID 04/24/22 02/29/24 History iron) tablet,delayed release rosuvastatin 10 mg tablet (Crestor) 20 mg PO DAILY 06/18/23 02/29/24 History dapagliflozin propanediol 10 mg 10 mg PO DAILY #90 tabs 09/13/23 02/29/24 Rx tablet (Farxiga) scopolamine base 1 mg over 3 days 1 patch transdermal PRN #10 ea 09/26/23
[2024-02-29 12:26] VITALS: BP 187/85; PULSE 82; O2SAT 96
[2024-02-29 12:36] VITALS: BP 193/82; PULSE 80; O2SAT 98
[2024-02-29 12:46] VITALS: BP 154/77; PULSE 74; O2SAT 99
== END 2024-02-29 12:56 | disposition home or self-care (01) ==
PROVIDERS: PCP Family Medicine; Visit Provider Internal Medicine Gastroenterology
PROC: 0DJD8ZZ Inspection of Lower Intestinal Tract, Via Natural or Artificial Opening Endoscopic (ICD-10-PCS; CPT 45378; principal; 2024-02-29 13:00)
DX: D12.2 Benign neoplasm of ascending colon (principal); D12.3 Benign neoplasm of transverse colon; D17.5 Benign lipomatous neoplasm of intra-abdominal organs; K64.8 Other hemorrhoids; I25.10 Atherosclerotic heart disease of native coronary artery without angina pectoris; F41.9 Anxiety disorder, unspecified; I13.0 Hypertensive heart and chronic kidney disease with heart failure and stage 1 through stage 4 chronic kidney disease, or unspecified chronic kidney disease; I50.30 Unspecified diastolic (congestive) heart failure; N18.30 Chronic kidney disease, stage 3 unspecified; E78.5 Hyperlipidemia, unspecified; M35.3 Polymyalgia rheumatica; I73.9 Peripheral vascular disease, unspecified; E55.9 Vitamin D deficiency, unspecified; Z85.3 Personal history of malignant neoplasm of breast; Z92.21 Personal history of antineoplastic chemotherapy; Z92.3 Personal history of irradiation; E66.01 Morbid (severe) obesity due to excess calories; Z68.41 Body mass index [BMI] 40.0-44.9, adult; Z79.82 Long term (current) use of aspirin; Z79.84 Long term (current) use of oral hypoglycemic drugs; Z79.51 Long term (current) use of inhaled steroids
CPT/HCPCS: 45385; 88305; J2704; J7120

== ENCOUNTER 2024-05-16 23:08 | Observation (INO) | payer OTHER, SELFPAY ==
--- NOTE | ~2024-05-16 | XR_ITS ---
EXAMINATION: XR chest 1V portable DATE: 05/17/2024 00:38 INDICATION: Weakness. COVID-19. TECHNIQUE: A single frontal view of the chest was obtained. COMPARISON: Chest 2 views 04/05/2023, CT abdomen and pelvis 04/05/2023, chest CT 11/09/2022 FINDINGS: The lung volumes are small. There are mild airspace opacities in left mid and upper lung [place]. The heart size is normal. There is an electronic implant in left chest wall. Surgical clips in t he right upper quadrant are likely from cholecystectomy. IMPRESSION: 1. Stable mild airspace opacities in left mid and upper lung zones, consistent with radiation fibrosi s. Reviewed, dictated and finalized at location A. ICAL CHECKER IMPRESSION: 1. Stable mild airspace opacities in left mid and upper lung zones, consistent with radiation fibrosis.
[2024-05-16 23:16] VITALS: BP 153/105; PULSE 94; PULSE 98; RESP 25; TEMP 37.6; O2SAT 91
--- NOTE | 2024-05-16 23:21 | ECG_ITS ---
Test Date: 2024-05-16 23:23:36 Measurements Intervals [place] Rate: 93 P: 33 IA: 169 QRS: -24 QRSD: 93 T: 146 QT: 277 QTc: 346 Interpretive Statements SINUS RHYTHM LEFT VENTRICULAR HYPERTROPHY AND ST-T CHANGE BORDERLINE ST-T WAVE ABNORMALITY- ANTEROLAT/INF LEADS BASELINE ARTIFACT- I, II, III, AVR, AVL, AVF, V1-V6 BORDERLINE ECG No previous ECG available for comparison Electronically Signed On 05-17-2024 06:08:20 [employer] by Nathan Gomes D.O.
[2024-05-16 23:29] LABS: Basophils Absolute Auto 0.1 K/mm3 (0.0-0.1); Basophils Percent Auto 0.5 % (0.2-1.2); Eosinophils Absolute Auto 0.1 K/mm3 (0-0.3); Eosinophils Percent Auto 0.6 % (0-4.4); Hematocrit 46.1 % (37.0-47.0); Hemoglobin 15.2 g/dL (12.0-15.0); Immature Granulocyte Absolute 0.05 K/mm3 (0.00-0.031); Immature Granulocyte Percent A 0.4 % (0-0.5); Lymphocytes Absolute Auto 2.28 K/mm3 (0.9-3.2); Lymphocytes Percent Auto 17.8 % (18.3-44.2); Mean Corpuscular Hemoglobin 28.7 pg (26-34); Mean Corpuscular Volume 87.1 fl (80-100); Mean Platelet Volume 10.7 fl (7.4-10.4); Monocytes Absolute Auto 1.1 K/mm3 (0.1-0.6); Monocytes Percent Auto 8.5 % (2.6-8.5); Neutrophils Absolute Auto 9.2 K/mm3 (1.3-6.7); Neutrophils Percent Auto 72.2 % (45.5-73.1); Platelet Count Result 254 k/mm3 (150-375); Red Blood Count 5.29 M/mm3 (4.2-5.4); Red Cell Distribution Width 17.1 % (11.5-14.5); White Blood Count 12.8 K/mm3 (4.5-10.0)
[2024-05-16 23:42] LABS: Alanine Aminotransferase 44 U/L (6-35); Albumin Level 4.7 g/dL (3.5-5.1); Alkaline Phosphatase 118 U/L (38-126); Anion Gap 12 mmol/L (4-12); Aspartate Amino Transferase 56 U/L (14-36); Bilirubin,Total 2.1 mg/dL (0.2-1.3); Blood Urea Nitrogen 26 mg/dL (7-17); Carbon Dioxide 26 mmol/L (22-30); Chloride 96 mmol/L (98-107); Estimated CRCL calculation 47 ml/min; Estimated Glomerular Filt Rate 44; Glucose 131 mg/dL (65-110); INR 1.1; Partial Thromboplastin Time 27.1 Seconds (22.3-36.8); Prothrombin Time 14.6 Seconds (11.1-14.7); Sodium 134 mmol/L (137-145)
[2024-05-16] MEDS: SODIUM CHLORIDE 0.9% IV 1,000 ML 999 ML IV CONT (23:55)
[2024-05-17] VITALS (18 sets, daily range): BP systolic 127–164; BP diastolic 62–137; PULSE 73–90; RESP 14–30; TEMP 36.6–36.8; O2SAT 90–98; BMI 46.6; BMI 40.5
[2024-05-17] MEDS: KCL 20 MEQ/SW 100 ML 100 ML 50 MEQ IVPB (00:19)
[2024-05-17 00:22] LABS: Alveolar/Arterial O2 Gradient 41.1 mmHg; Base Excess ABG 0.1 mEq/l (+/-2.0); Fractional Inspired Oxygen 21 %; HCO3 ABG 22.2 mEq/l (22.0-26.0); Oxygen Content ABG 19.4 %vol (16.0-22.0); Oxygen Saturation ABG 96.1 % (95.0-100.0); Oxyhemoglobin 94.6 % THb (90.0-100.0); PCO2 ABG 29.2 mmHg (35.0-45.0); PO2 ABG 73.7 mmHg (80.0-100.0); PO2 FiO2 Ratio Arterial Blood 3.51 %; Total Hemoglobin 14.6 g/dL (12.0-18.0); pH ABG 7.498 (7.350-7.450)
[2024-05-17 00:24] LABS: Device ROOM AIR; Modified Allen's Test Pass; Site Drawn RIGHT RADIAL
--- NOTE | 2024-05-17 00:24 | PC.NURSE ---
pt verbailzed potassium infusion was burning too bad . this rn titrated the potassium to 25.
[2024-05-17 00:30] LABS: Lactic Acid Reflex 1.9 mmol/L (0.7-2.0)
[2024-05-17 01:00] LABS: Procalcitonin 0.3 ng/mL
--- NOTE | 2024-05-17 01:01 | ED.GENADULT ---
HPI - General Adult General Chief complaint: Weakness Stated complaint: COVID+, feeling confused , SOB Time Seen by Provider: 05/16/24 23:35 History of Present Illness HPI narrative: patient is a 71-year-old female who presents emergency department chief complaint of generalized weakness. Patient was just diagnosed with COVID and this evening was extremely weak the patient was started on Paxlovid. the family reports that she became extremely weak and having difficulty getting to ambulate around Related Data Home Medications Medication Instructions Recorded Confirmed aspirin 81 mg tablet,delayed 81 mg PO QHS 10/24/19 04/14/24 release ursodiol 250 mg tablet 750 mg PO QHS 09/15/20 04/14/24 ferrous sulfate 325 mg (65 mg 325 mg PO BID 04/24/22 04/14/24 iron) tablet,delayed release cetirizine 10 mg capsule (Zyrtec) 10 mg PO DAILY 12/17/23 04/14/24 Allergies Allergy/AdvReac Type Severity Reaction Status Date / Time amoxicillin Allergy Unknown Upset Verified 05/16/24 23:22 stomach ceftriaxone AdvReac Intermediate Rash Verified 05/16/24 23:22 Review of Systems Review of Systems: A 10 system review of systems was completed on the patient and is negative except for what is stated in the HPI. Nursing and ancillary documentation was reviewed. [facility], [facility] Past Medical History Medical History Anxiety Atherosclerotic heart disease of [place] coronary artery without angina pectoris Bilateral leg cramps Bilateral leg edema BMI 40.0-44.9, adult Breast CA Breast cancer Left breast cancer proximally 21 years ago status post lumpectomy and chemoradiation. Right breast cancer (in situ) approximately 3 years ago status post lumpectomy, currently on tamoxifen. 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 Chronic kidney disease, stage 3 COVID-19 Diastolic congestive heart failure with preserved left ventricular function, NYHA class 2 Dyslipidemia Elevated troponin Hypertension Impingement of right shoulder Morbid obesity Osteoarthritis Peripheral arterial disease Polymyalgia rheumatica Primary biliary cirrhosis Skin lesion Skin lesion of face Status post placement of implantable loop recorder Stenosis of brachiocephalic artery Subclavian artery stenosis, left Tracheal mass Vitamin D deficiency Surgical History Surgical History History of section History of cholecystectomy History of hysterectomy History of vascular surgery Left upper extremity stent. Family History Family History Father Hypertension Patient's father is , Onset Age: 52 Cerebrovascular accident Mother Family history of diabetes mellitus in first degree relative Family history of pancreatic cancer Family history of primary malignant neoplasm of liver Patient's mother is , Onset Age: 64 Sibling Malignant neoplasm of prostate Daughter Breast cancer H/O mastectomy Social History Social History Social History: Surrogate medical decision maker: Thomas Garces, spouse. Code status: Full code. 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 Gender identity (if verbalized by the patient): Female Spiritual care concerns: No Agree to blood products: Yes Exam Narrative: GENERAL: Well-appearing, well-nourished, and in no acute distress. HEAD: Normocephalic, atraumatic. EYES: PERRLA and EOMI. ENT: Nares clear, no rhinorrhea or epistaxis. Mucous membranes moist. NECK: Supple. CHEST: Clear to auscultation. No respiratory distress. HEART: Regular rate and rhythm. No murmur heard. Normal peripheral pulses. ABDOMEN: Soft, nontender, nondistended, normal active bowel sounds. EXTREMITIES: Normal range of motion. No edema. SKIN: Warm, dry, no rash. NEURO: No focal deficits. Alert and oriented x3. Very weak PSYCH: Normal mood and affect. Course Vital Signs Vital signs: Vital Signs Temperature 37.6 C H 05/16/24 23:16 Pulse Rate 98 05/16/24 23:16 Respiratory Rate 25 H 05/16/24 23:16 Blood Pressure 153/105 H 05/16/24 23:16 Pulse Oximetry 91 05/16/24 23:16 Oxygen Delivery Room Air 05/16/24 23:16 Temperature 37.6 C H 05/16/24 23:16 Pulse Rate 85 05/17/24 00:20 Respiratory Rate 14 05/17/24 00:20 Blood Pressure 164/137 H 05/17/24 00:20 Pulse Oximetry 97 05/17/24 00:47 Oxygen Delivery Room Air 05/17/24 00:47 Medical Decision Making Vital Signs Vital Signs: Vital Signs Temperature 37.6 C H 05/16/24 23:16 Pulse Rate 98 05/16/24 23:16 Respiratory Rate 25 H 05/16/24 23:16 Blood Pressure 153/105 H 05/16/24 23:16 Pulse Oximetry 91 05/16/24 23:16 Oxygen Delivery Room Air 05/16/24 23:16 Temperature 37.6 C H 05/16/24 23:16 Pulse Rate 85 05/17/24 00:20 Respiratory Rate 14 05/17/24 00:20 Blood Pressure 164/137 H 05/17/24 00:20 Pulse Oximetry 97 05/17/24 00:47 Oxygen Delivery Room Air 05/17/24 00:47 Lab Data 05/16/24 23:24 05/16/24 23:24 Labs: Lab Results 05/16/24 05/16/24 05/17/24 Range/Units 23:24 23:56 01:22 WBC 12.8 H (4.5-10.0) K/mm3 RBC 5.29 (4.2-5.4) M/mm3 Hgb 15.2 H (12.0-15.0) g/dL Hct 46.1 (37.0-47.0) % MCV 87.1 (80-100) fl MCH 28.7 (26-34) pg MCHC 33.0 (32-36) g/dl RDW 17.1 H (11.5-14.5) % Plt Count 254 (150-375) k/mm3 MPV 10.7 H (7.4-10.4) fl Immature Gran % (Auto) 0.4 (0-0.5) % Neut % (Auto) 72.2 (45.5-73.1) % Lymph % (Auto) 17.8 L (18.3-44.2) % [place] % (Auto) 8.5 (2.6-8.5) % Eos % (Auto) 0.6 (0-4.4) % Baso % (Auto) 0.5 (0.2-1.2) % Lymph # (Auto) 2.28 (0.9-3.2) K/mm3 [place] # (Auto) 1.1 H (0.1-0.6) K/mm3 Eos # (Auto) 0.1 (0-0.3) K/mm3 Baso # (Auto) 0.1 (0.0-0.1) K/mm3 Abs Immat Gran (auto) 0.05 H (0.00-0.031) K/mm3 Absolute Neuts (auto) 9.2 H (1.3-6.7) K/mm3 Absolute Nucleated RBC 0.000 (0.0-0.012) K/mm3 Nucleated RBC % 0.0 (0.0-0.2) % PT 14.6 (11.1-14.7) Seconds INR 1.1 APTT 27.1 (22.3-36.8) Seconds Sodium 134 L (137-145) mmol/L Potassium 3.0 L (3.4-5.0) mmol/L Chloride 96 L (98-107) mmol/L Carbon Dioxide 26 (22-30) mmol/L Anion Gap 12 (4-12) mmol/L BUN 26 H (7-17) mg/dL Creatinine 1.20 H (0.7-1.0) mg/dL Estim Creat Clear Calc 47 ml/min Estimated GFR 44 L (59 - ) Glucose 131 H (65-110) mg/dL Lactic Acid 1.9 (0.7-2.0) mmol/L Calcium 10.0 (8.4-10.2) mg/dL Magnesium 2.0 (1.6-2.3) mg/dL Total Bilirubin 2.1 H (0.2-1.3) mg/dL AST 56 H (14-36) U/L ALT 44 H (6-35) U/L Alkaline Phosphatase 118 (38-126) U/L Troponin I Pending NT-Pro-B Natriuret Pep 298 H (19.9-100) pg/mL Total Protein 9.0 H (6.3-8.2) g/dL Albumin 4.7 (3.5-5.1) g/dL Procalcitonin 0.3 ng/mL Urine Color Yellow (Yellow) Urine Appearance Clear (Clear) Urine pH 5.5 (5.0-9.0) Ur Specific [place] 1.016 (1.001-1.035) Urine Protein Negative (Negative) mg/dL Urine Glucose (UA) 3+ H (Negative) mg/dL Urine Ketones Negative (Negative) mg/dL Ur Blood (Man) Negative (Negative) Urine Nitrate Positive H (Negative) Urine Bilirubin Negative (Negative) Urine Urobilinogen 0.2 (<2.0) mg/dL Add Ur Microanalysis Reviewed Leukocyte Esterase Rfl Negative (Negative) TOM/UL Urine RBC 0-2 (0-2) /hpf Urine WBC 11-20 H (0-3) /hpf Ur Squamous Epith Cells None seen (Few) /hpf Urine Bacteria 1+ H /hpf Urine Casts 0-2 ABG Data ABG results: 05/16/24 23:59 Puncture Site Right radial ABG pH 7.498 H ABG pCO2 29.2 L ABG pO2 73.7 L ABG PO2/FiO2 Ratio 3.51 ABG HCO3 22.2 ABG O2 Saturation 96.1 ABG O2 Content 19.4 ABG Base Excess 0.1 A-a Gradient 41.1 Oxyhemoglobin 94.6 Total Hemoglobin 14.6 O2 Delivery Device Room air O2 Liters/Min Not Reportable FiO2 21 Discharge Plan Discharge Clinical Impression: COVID-19, Generalized weakness, Acute hypokalemia, Acute kidney injury, Acute UTI Patient Disposition: Still a Patient Condition: Stable Prescriptions: No Action aspirin 81 mg tablet,delayed release (DR/EC) 81 mg PO QHS ferrous sulfate 325 mg (65 mg iron) tablet,delayed release (DR/EC) 325 mg PO BID Farxiga 10 mg tablet 10 mg PO DAILY Qty: 90 1RF ursodiol 250 mg tablet 750 mg PO QHS Patient Comments: managed by cpr instructor Zyrtec 10 mg capsule 10 mg PO DAILY hydrochlorothiazide 25 mg tablet 25 mg PO DAILY Qty: 90 3RF amlodipine 5 mg tablet 5 mg PO DAILY Qty: 90 3RF scopolamine base 1 mg over 3 days patch 3 day 1 patch transdermal PRN Qty: 24 0RF rosuvastatin 20 mg tablet 20 mg PO DAILY Qty: 100 3RF albuterol sulfate [ProAir HFA] 90 mcg/actuation HFA aerosol inhaler 1 inh inhalation Q4H PRN (Reason: shortness of breath or wheezing) Qty: 8.5 2RF metoprolol succinate 50 mg tablet extended release 24 hr 50 mg PO DAILY Qty: 90 3RF prednisone 5 mg tablet 5 mg PO DAILY Qty: 90 1RF Rx Instructions: minimum of 6 months levothyroxine 50 mcg tablet See Rx Instructions .ROUTE .COMPLEX Qty: 90 0RF Dose Instruction: TAKE ONE TABLET BY MOUTH EVERY MORNING Rx Instructions: TAKE ONE TABLET BY MOUTH EVERY MORNING pregabalin [Lyrica] 75 mg capsule 75 mg PO BID Qty: 60 5RF Follow-up/Referrals: Devon Villafana MD [Primary Care Provider] - Time of Disposition: 01:50
[2024-05-17] MEDS: SODIUM CHLORIDE 0.9% IV 500 ML 250 ML (01:16)
[2024-05-17 01:40] LABS: Add Urine Microscopic? YES; Appearance Urine Clear (Clear); Bacteria Urine 1+ /hpf; Bilirubin Urine Negative (Negative); Blood Urine Negative (Negative); Color Urine Yellow (Yellow); Glucose Urine UA 3+ mg/dL (Negative); Ketones Urine Negative (Negative); Leukocyte Esterase Ur Negative LEU/UL (Negative); Need Manual Microscopic Reviewed; Nitrate Urine Positive (Negative); Non Pathogenic Casts 0-2; Protein Urine Negative (Negative); RBC Urine 0-2 /hpf (0-2); Specific Grav Ur 1.016 (1.001-1.035); Squamous Epithelial Cell Urine None Seen /hpf (Few); Urobilinogen Urine 0.2 mg/dL (<2.0); pH Urine 5.5 (5.0-9.0)
[2024-05-17 01:40] LABS: NT Pro B Type Natriuretic Pept 298 pg/mL (19.9-100)
[2024-05-17 02:00] LABS: Troponin I < 0.012 ng/mL (0.000-0.034)
[2024-05-17] MEDS: POTASSIUM CHLORIDE 20 MEQ PACKET (FOR LIQUID) PO (02:32)
--- NOTE | 2024-05-17 02:50 | P.HP_ITS ---
H&P: HPI History of Present Illness Date/Time: 05/17/24 02:50 Chief Complaint: Weakness. Narrative: This is a 73-year-old female with history of hypertension, hyperlipidemia, diastolic congestive heart failure, peripheral arterial disease status post left upper extremity stent, hypothyroidism, iron deficiency anemia, breast cancer, polymyalgia rheumatica chronic kidney disease, and other comorbidities who presented to the emergency department via private vehicle from home for evaluation of weakness. The patient provides the following history. She has not felt well for a couple of days with generalized weakness, sinus congestion, mild sore throat, and nonproductive cough. She was diagnosed with COVID at a local urgent care yesterday and was prescribed Paxlovid. As the day progressed she became increasingly weak and was hardly able to get herself out of her chair and she came in for evaluation. She denies fever, chest pain, shortness of breath, nausea, vomiting, diarrhea, dysuria, and calf pain. In the ED: She was afebrile on arrival with stable vital signs. Labs were significant for WBC count of 12.8, hemoglobin 15.2, sodium 134, potassium 3.0, chloride 96, BUN 26, creatinine 1.20, total bilirubin 2.1, AST 56, ALT 44, proBNP 298. Urine was nitrate positive with 11 to 20 WBC per high-power field and 1+ bacteria were noted on microscopy. She was given a dose of levofloxacin to cover possible urinary tract infection. Her potassium was replaced and she was started on IV fluids. She is being admitted in this setting due to weakness. Review of Systems Review of Systems: 12 systems were reviewed and are negativ e except for as per HPI. [facility] Past Medical History Medical History Anxiety Atherosclerotic heart disease of [place] coronary artery without angina pectoris Breast cancer Left breast cancer proximally 21 years ago status post lumpectomy and chemoradiation. Right breast cancer (in situ) approximately 3 years ago status post lumpectomy, currently on tamoxifen. 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 Chronic kidney disease, stage 3 COVID-19 Diastolic congestive heart failure with preserved left ventricular function, NYHA class 2 Dyslipidemia Fatty liver disease, nonalcoholic Hypertension Hypothyroidism Morbid obesity Osteoarthritis Peripheral arterial disease Polymyalgia rheumatica Primary biliary cirrhosis Stenosis of brachiocephalic artery Subclavian artery stenosis, left Tracheal mass Vitamin D deficiency Surgical History Surgical History History of section History of cholecystectomy History of hysterectomy History of loop recorder (08/2022) History of vascular surgery left upper extremity stent for subclavian stenosis Family History Family History Father Hypertension Patient's father is , Onset Age: 52 Cerebrovascular accident Mother Family history of diabetes mellitus in first degree relative Family history of pancreatic cancer Family history of primary malignant neoplasm of liver Patient's mother is , Onset Age: 64 Sibling Malignant neoplasm of prostate Daughter Breast cancer H/O mastectomy Social History Social History Social History: Surrogate medical decision maker: hTomas Garces, spouse. Code status: Full code. 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 Spiritual care concerns: No Agree to blood products: Yes Meds Home Medications and Allergies Home Medications Medication Instructions Recorded Confirmed Type aspirin 81 mg tablet,delayed 81 mg PO QHS 10/24/19 05/17/24 History release ursodiol 250 mg tablet 750 mg PO QHS 09/15/20 05/17/24 History ferrous sulfate 325 mg (65 mg 325 mg PO BID 04/24/22 05/17/24 History iron) tablet,delayed release dapagliflozin propanediol 10 mg 10 mg PO DAILY #90 tabs 09/13/23 05/17/24 Rx tablet (Farxiga) amlodipine 5 mg tablet 5 mg PO DAILY #90 tabs 12/17/23 05/17/24 Rx cetirizine 10 mg capsule (Zyrtec) 10 mg PO DAILY 12/17/23 05/17/24 History hydrochlorothiazide 25 mg tablet 25 mg PO DAILY #90 tabs 12/17/23 05/17/24 Rx albuterol sulfate 90 mcg/actuation 1 inh inhalation Q4H PRN shortness 12/24/23 05/17/24 Rx aerosol inhaler (ProAir HFA) of breath or wheezing #8.5 grams metoprolol succinate 50 mg 50 mg PO DAILY #90 tabs 12/26/23 05/17/24 Rx tablet,extended release 24 hr prednisone 5 mg tablet 5 mg PO DAILY #90 tabs 01/22/24 05/17/24 Rx levothyroxine 50 mcg tablet See Rx Instructions .Route 04/04/24 05/17/24 Rx .COMPLEX #90 tabs rosuvastatin 20 mg tablet 20 mg PO DAILY #100 tabs 04/14/24 05/17/24 Rx scopolamine base 1 mg over 3 days 1 patch transdermal PRN #24 ea 04/14/24 05/17/24 Rx transdermal patch pregabalin 75 mg capsule (Lyrica) 75 mg PO BID #60 caps 04/18/24 05/17/24 Rx Allergies Allergy/AdvReac Type Severity Reaction Status Date / Time amoxicillin Allergy Unknown Upset Verified 05/16/24 23:22 stomach ceftriaxone AdvReac Intermediate Rash Verified 05/16/24 23:22 Vital Signs Vital Signs - 24 hr 05/16/24 23:16 05/16/24 23:16 05/16/24 23:16 Temperature 99.7 F H Pulse Rate 98 94 Respiratory Rate 25 H Blood Pressure 153/105 H Pulse Oximetry 91 91 Oxygen Delivery Room Air Room Air 05/17/24 00:15 05/17/24 00:20 05/17/24 00:47 Temperature Pulse Rate 90 85 Respiratory Rate 18 14 Blood Pressure 137/82 164/137 H Pulse Oximetry 96 97 Oxygen Delivery Room Air 05/17/24 02:38 05/17/24 00:23 05/17/24 00:31 Temperature 98.1 F Pulse Rate 90 89 Respiratory Rate 22 H 24 H Blood Pressure 137/82 145/72 H Pulse Oximetry 94 91 Oxygen Delivery 05/17/24 00:46 05/17/24 01:01 05/17/24 01:46 Temperature Pulse Rate 86 87 86 Respiratory Rate 25 H 30 H 25 H Blood Pressure 127/87 132/77 146/66 H Pulse Oximetry 98 96 91 Oxygen Delivery 05/17/24 02:01 05/17/24 02:16 05/17/24 02:31 Temperature Pulse Rate 85 88 86 Respiratory Rate 23 H 22 H 23 H Blood Pressure 143/65 H 139/64 140/69 Pulse Oximetry 90 93 93 Oxygen Delivery Exam Narrative: General: Mildly ill-appearing female in the semi-Ferris position in bed. Weight: 110.5 kg. BMI: 40.5. HEENT: PERRL, EOMI. Sclera anicteric. Tacky mucous membranes. Neck: Supple. Respiratory: Respirations are mildly tachypneic though she appears in no respiratory distress. Lung sounds are a bit coarse at the bases with faint wheezing. Cardiovascular: Regular rate and rhythm with S1-S2. Gastrointestinal: Abdomen is soft, obese, nontender, and nondistended with positive bowel sounds. Skin: Warm and dry. Extremities: No cyanosis or clubbing. Trace lower extremity edema bilaterally. No palpable knots or cords. Neurological: Alert. Cranial nerves 2-12 are grossly intact. No gross focal deficits to casual conversation. She was able to get herself up out of the bed to go to the bathroom without much help. Psychiatric: Pleasant and cooperative with appropriate mood and affect. H&P: Results Labs Labs: Short CBC 05/16/24 Range/Units 23:24 WBC 12.8 H (4.5-10.0) K/mm3 Hgb 15.2 H (12.0-15.0) g/dL Hct 46.1 (37.0-47.0) % Plt Count 254 (150-375) k/mm3 BMP 05/16/24 23:24 Sodium 134 L Potassium 3.0 L Chloride 96 L Carbon Dioxide 26 BUN 26 H Creatinine 1.20 H Glucose 131 H Calcium 10.0 Cardiac Enzymes 05/16/24 Range/Units 23:24 Troponin I < 0.012 (0.000-0.034) ng/mL Liver Function 05/16/24 Range/Units 23:24 Total Bilirubin 2.1 H (0.2-1.3) mg/dL AST 56 H (14-36) U/L ALT 44 H (6-35) U/L Alkaline Phosphatase 118 (38-126) U/L Albumin 4.7 (3.5-5.1) g/dL Urine 05/17/24 Range/Units 01:22 Urine Color Yellow (Yellow) Urine Appearance Clear (Clear) Urine pH 5.5 (5.0-9.0) Ur Specific [place] 1.016 (1.001-1.035) Urine Protein Negative (Negative) mg/dL Urine Glucose (UA) 3+ H (Negative) mg/dL Imaging Chest X-Ray 05/17/24 06:19 IMPRESSION: 1. Stable mild airspace opacities in left mid and upper lung zones, consistent with radiation fibrosis. Assessment and Plan Assessment and plan (1) COVID-19: Code(s): U07.1 - COVID-19 Status: Acute (2) Hypokalemia: Code(s): E87.6 - Hypokalemia Status: Acute (3) Dehydration: Code(s): E86.0 - Dehydration Status: Acute (4) Elevated LFTs: Code(s): R79.89 - Other specified abnormal findings of blood chemistry Status: Acute (5) Bacteriuria with pyuria: Code(s): R82.71 - Bacteriuria; R82.81 - Pyuria Status: Acute (6) Diastolic congestive heart failure with preserved left ventricular function, NYHA class 2: Code(s): I50.30 - Unspecified diastolic (congestive) heart failure Status: Acute (7) Hypertension: Qualifiers: Hypertension type: primary hypertension Qualified Code(s): I10 - Essential (primary) hypertension Code(s): I10 - Essential (primary) hypertension Status: Acute (8) Hypothyroidism: Code(s): E03.9 - Hypothyroidism, unspecified Status: Acute Plan The patient presented to the emergency department for evaluation of weakness as detailed in HPI. Labs, imaging, EKG, and all reports were personally reviewed. She recently tested positive for COVID and was started on Paxlovid today. She has multiple risk factors putting her at higher risk for adverse outcomes due to COVID and she has been started on remdesivir. There is no indication for dexamethasone at this time. She looks a bit dry on exam and by labs and will be hydrated overnight. Potassium will be replaced and monitored. Her renal function is pretty stable compared to baseline. AST, ALT, and total bilirubin are all slightly elevated and may very well be related to COVID however she has had increased LFTs in the past and it may be related to her chronic medical conditions as well. Her abdominal exam is benign and LFTs will be monitored. No further evaluation planned at this time. Urinalysis is nitrate positive with increased number of WBC per high-power field and 1+ bacteria and she was started on levofloxacin in the ED which will be continued pending urine culture. Her blood pressures were reviewed and they are stable. Her home medications will be reviewed and resumed as appropriate. Findings and treatment plan were discussed with the patient. Questions were solicited and answered to satisfaction. The patient's medical management will be taken over by the hospitalist team in a.m. Quality VTE Prophylaxis VTE prophylaxis: pharmacologic ordered The patient has been admitted under observation status. Hospitalist [facility] Advance Care Plan I have confirmed that the patient's Advanced Care Plan is present, code status is documented, or surrogate decision maker is listed in patient medical record.: Yes Medication Reconciliation I have utilized all available resources to obtain, update and review the patients current medications (includes all prescriptions, OTC, herbals, cannabis, and nutritional supplements).: Yes
[2024-05-17] MEDS: levoFLOXacin 750 MG/D5W 150 ML 750 MG/150 ML BAG 100 MG IVPB (03:32)
[2024-05-17] MEDS: REMDESIVIR 200 MG/NS 250 ML 200 MG/250 ML BAG 250 MG IVPB (03:51)
[2024-05-17] MEDS: SODIUM CHLORIDE 0.9% IV 1,000 ML 75 ML IV CONT (04:46)
[2024-05-17 07:02] LABS: Hematocrit 40.4 % (37.0-47.0); Hemoglobin 12.8 g/dL (12.0-15.0); Mean Corpuscular HGB Conc 31.7 g/dl (32-36); Mean Corpuscular Hemoglobin 28.1 pg (26-34); Mean Corpuscular Volume 88.6 fl (80-100); Mean Platelet Volume 10.6 fl (7.4-10.4); Platelet Count Result 198 k/mm3 (150-375); Red Blood Count 4.56 M/mm3 (4.2-5.4); Red Cell Distribution Width 16.9 % (11.5-14.5); White Blood Count 8.2 K/mm3 (4.5-10.0)
[2024-05-17 07:06] LABS: Alanine Aminotransferase 34 U/L (6-35); Albumin Level 3.7 g/dL (3.5-5.1); Alkaline Phosphatase 81 U/L (38-126); Anion Gap 8 mmol/L (4-12); Aspartate Amino Transferase 41 U/L (14-36); Bilirubin,Total 1.4 mg/dL (0.2-1.3); Blood Urea Nitrogen 20 mg/dL (7-17); Calcium 8.5 mg/dL (8.4-10.2); Carbon Dioxide 25 mmol/L (22-30); Chloride 102 mmol/L (98-107); Estimated CRCL calculation 56 ml/min; Estimated Glomerular Filt Rate 55; Glucose 92 mg/dL (65-110); Lactate Dehydrogenase 168 U/L (120-246); Magnesium 1.9 mg/dL (1.6-2.3); Sodium 135 mmol/L (137-145)
[2024-05-17] MEDS: FERROUS SULFATE 325 MG TABLET DR PO ×2 (10:10→20:17)
[2024-05-17] MEDS: LEVOTHYROXINE SODIUM 50 MCG TABLET BY MOUTH (10:10)
[2024-05-17] MEDS: PREGABALIN (*CRX) 75 MG CAPSULE PO ×2 (10:11→20:16)
[2024-05-17] MEDS: ENOXAPARIN 40 MG/0.4 ML SYRINGE SUB-Q (10:11)
[2024-05-17] MEDS: EMPAGLIFLOZIN 10 MG TABLET BY MOUTH (10:11)
[2024-05-17] MEDS: predniSONE 5 MG TABLET PO (10:11)
[2024-05-17] MEDS: ACETAMINOPHEN 325 MG TABLET 650 MG PO ×2 (10:12→20:18)
--- NOTE | 2024-05-17 17:53 | PC.NURSE ---
pt wishes to have 1700 scheduled meds at 2100 with others
--- NOTE | 2024-05-17 18:25 | PM.IMPN ---
Progress Note: A&P Assessment and Plan (1) COVID-19: Code(s): U07.1 - COVID-19 Status: Acute Assessment and Plan: - Covid isolation precautions. - Started on Paxlovid the day before her admission. - Currently on Remdesivir IV. - No indication for steroids currently. - Good O2 sats > 90 % on RA currently. (2) Hypokalemia: Code(s): E87.6 - Hypokalemia Status: Acute Assessment and Plan: - Repleted. - Continue to monitor levels. (3) Dehydration: Code(s): E86.0 - Dehydration Status: Acute Assessment and Plan: - Improving with IVF hydration. - Encouraged with Po fluids. - Consider IVF d/c with good PO intake. (4) Elevated LFTs: Code(s): R79.89 - Other specified abnormal findings of blood chemistry Status: Acute Assessment and Plan: - Possibly related to acute viral infection. - Trending down. - Monitor trend for now. (5) Bacteriuria with pyuria: Code(s): R82.71 - Bacteriuria; R82.81 - Pyuria Status: Acute Assessment and Plan: - UA suspicious for UTI. - Started on Levaquin. - Follow urine cultures. (6) Diastolic congestive heart failure with preserved left ventricular function, NYHA class 2: Code(s): I50.30 - Unspecified diastolic (congestive) heart failure Status: Acute Assessment and Plan: - Appears compensated. - Monitor closely for decompensation with IVF hydration. (7) Hypertension: Qualifiers: Hypertension type: primary hypertension Qualified Code(s): I10 - Essential (primary) hypertension Code(s): I10 - Essential (primary) hypertension Status: Acute Assessment and Plan: - BP fairly well controlled. - Continue Amlodipine and Metoprolol. (8) Hypothyroidism: Code(s): E03.9 - Hypothyroidism, unspecified Status: Acute Assessment and Plan: - TSH, FT4 pending. - Continue home dose levothyroxine. Plan - Continue Covid treatment with Remdesivir and supportive care. Continue UTI treatment and follow urine culture. Maintain Covid isolation precautions. Time Spent With Patient Time with patient: 25 - 35 minutes Subjective Date/time seen: 05/17/24 18:25 Patient on bedrest and reports intermittent cough episodes but no sputum. States feeling much better compared to yesterday and chest discomfort much improved. Interval history: Patient calm on bedrest with episodes of intermittent moist coughs. Appears to be in no acute distress. Review of Systems Review of Systems: 12 systems were reviewed and are negative except for as per HPI. All systems reviewed & are unremarkable except as noted in HPI and below Exam Narrative: General: Fair appearing and in no acute distress. Weight: 110.5 kg. BMI: 40.5. HEENT: PERRL, EOMI. Sclera anicteric. moist mucous membranes. Neck: Supple. Respiratory: Lungs clear bilaterally. Cardiovascular: Regular rate and rhythm with S1-S2. Gastrointestinal: Abdomen is soft, obese, nontender, and nondistended with positive bowel sounds. Skin: Warm and dry. Extremities: No cyanosis or clubbing. No lower extremity edema bilaterally. Neurological: Alert and well oriented. Cranial nerves 2-12 are grossly intact. Psychiatric: Pleasant and cooperative with appropriate mood and affect. Objective Data Vital Signs Vital Signs: Vital Signs - 24 hr 05/16/24 23:16 05/16/24 23:16 05/16/24 23:16 Temperature 99.7 F H Pulse Rate 98 94 Respiratory Rate 25 H Blood Pressure 153/105 H Pulse Oximetry 91 91 Oxygen Delivery Room Air Room Air Fraction of Inspired Oxygen 05/17/24 00:15 05/17/24 00:20 05/17/24 00:47 Temperature Pulse Rate 90 85 Respiratory Rate 18 14 Blood Pressure 137/82 164/137 H Pulse Oximetry 96 97 Oxygen Delivery Room Air Fraction of Inspired Oxygen 05/17/24 02:38 05/17/24 00:23 05/17/24 00:31 Temperature 98.1 F Pulse Rate 90 89 Respiratory Rate 22 H 24 H Blood Pressure 137/82 145/72 H Pulse Oximetry 94 91 Oxygen Delivery Fraction of Inspired Oxygen 05/17/24 00:46 05/17/24 01:01 05/17/24 01:46 Temperature Pulse Rate 86 87 86 Respiratory Rate 25 H 30 H 25 H Blood Pressure 127/87 132/77 146/66 H Pulse Oximetry 98 96 91 Oxygen Delivery Fraction of Inspired Oxygen 05/17/24 02:01 05/17/24 02:16 05/17/24 02:31 Temperature Pulse Rate 85 88 86 Respiratory Rate 23 H 22 H 23 H Blood Pressure 143/65 H 139/64 140/69 Pulse Oximetry 90 93 93 Oxygen Delivery Fraction of Inspired Oxygen 05/17/24 03:26 05/17/24 03:28 05/17/24 07:51 Temperature 98.3 F 98.3 F Pulse Rate 88 88 Respiratory Rate 22 H 22 H Blood Pressure 143/75 H 143/75 H Pulse Oximetry 94 94 91 Oxygen Delivery Room Air Fraction of Inspired Oxygen 21 05/17/24 08:00 05/17/24 14:00 05/17/24 03:28 Temperature 97.8 F 98.3 F Pulse Rate 79 88 Respiratory Rate 20 22 H Blood Pressure 136/63 143/75 H Pulse Oximetry 93 94 Oxygen Delivery Room Air Fraction of Inspired Oxygen Intake/Output Intake/Output: Intake & Output 05/14/24 05/15/24 05/16/24 05/17/24 23:59 23:59 23:59 23:59 Intake Total 2500.0 Output Total 550 Balance 1950.0 Meds/Results Medications: Active Medications Generic Name Dose Route Start Last Admin Trade Name Freq PRN Reason Stop Dose Admin Acetaminophen 650 mg 05/17/24 02:02 05/17/24 10:12 Acetaminophen 325 Mg Tablet PO 650 mg Q4H PRN Administration Mild Pain (1-3) or Fever Albuterol 1 puff 05/17/24 06:05 Albuterol Sulfate (*Sp) Aerosol 1 Puff INHALATION Q4HRT PRN shortness of breath or wheezing Amlodipine Besylate 5 mg 05/17/24 21:00 Amlodipine Besylate 5 Mg Tablet PO 2100 [facility] Aspirin 81 mg 05/17/24 21:00 Aspirin 81 Mg Enteric Tablet PO QHS [facility] Empagliflozin 10 mg 05/17/24 09:00 05/17/24 10:11 Empagliflozin 10 Mg Tablet BY MOUTH 10 mg DAILY [facility] Administration Enoxaparin Sodium 40 mg 05/17/24 09:00 05/17/24 10:11 Enoxaparin 40 Mg/0.4 Ml Syringe SUB-Q 40 mg DAILY [facility] Administration Ferrous Sulfate 325 mg 05/17/24 09:00 05/17/24 10:10 Ferrous Sulfate [address] PO 325 mg BID [facility] Administration Levofloxacin/Dextrose 750 mg in 150 mls @ 100 mls/hr 05/18/24 23:00 Levaquin 750 Mg/D5w 150 Ml IVPB Q48H [facility] Remdesivir 100 mg in 250 mls @ 250 mls/hr 05/18/24 22:00 IVPB 05/21/24 22:59 Q24H [facility] Levothyroxine Sodium 50 mcg 05/17/24 06:30 05/17/24 10:10 Levothyroxine Sodium 50 Mcg Tablet BY MOUTH 50 mcg DAILY@0630 [facility] Administration Loratadine 10 mg 05/17/24 21:00 Loratadine 10 Mg Tablet PO 2100 [facility] Metoprolol Succinate 50 mg 05/17/24 21:00 Metoprolol Succinate Ext Rel 50 Mg Tabcr PO 2100 [facility] Miscellaneous Information 1 each 05/17/24 00:01 Ursodiol 250 Mg Tablet Nonformulary, Can Patient Bring From Home? XX 06/16/24 00:00 CLARIFY [facility] Non-Formulary Medication 750 mg 05/17/24 21:00 Ursodiol PO 06/16/24 20:59 QHS [facility] Prednisone 5 mg 05/17/24 08:00 05/17/24 10:11 Prednisone 5 Mg Tablet PO 5 mg DAILY@0800 [facility] Administration Pregabalin 75 mg 05/17/24 09:00 05/17/24 10:11 Pregabalin (*Crx) 75 Mg Capsule PO 75 mg BID [facility] Administration Rosuvastatin Calcium 20 mg 05/17/24 21:00 Rosuvastatin 20 Mg Tablet PO 2100 [facility] Radiology Results: ITS Impressions Chest X-Ray 05/17/24 06:19 IMPRESSION: 1. Stable mild airspace opacities in left mid and upper lung zones, consistent with radiation fibrosis. Labs Labs: Laboratory Results - last 24 hr 05/16/24 05/16/24 05/16/24 23:24 23:56 23:59 WBC 12.8 H RBC 5.29 Hgb 15.2 H Hct 46.1 MCV 87.1 MCH 28.7 MCHC 33.0 RDW 17.1 H Plt Count 254 MPV 10.7 H Immature Gran % (Auto) 0.4 Neut % (Auto) 72.2 Lymph % (Auto) 17.8 L [place] % (Auto) 8.5 Eos % (Auto) 0.6 Baso % (Auto) 0.5 Lymph # (Auto) 2.28 [place] # (Auto) 1.1 H Eos # (Auto) 0.1 Baso # (Auto) 0.1 Abs Immat Gran (auto) 0.05 H Absolute Neuts (auto) 9.2 H Absolute Nucleated RBC 0.000 Nucleated RBC % 0.0 PT 14.6 INR 1.1 APTT 27.1 Puncture Site Right radial ABG pH 7.498 H ABG pCO2 29.2 L ABG pO2 73.7 L ABG PO2/FiO2 Ratio 3.51 ABG HCO3 22.2 ABG O2 Saturation 96.1 ABG O2 Content 19.4 ABG Base Excess 0.1 A-a Gradient 41.1 Oxyhemoglobin 94.6 Total Hemoglobin 14.6 O2 Delivery Device Room air O2 Liters/Min Not Reportable FiO2 21 Sodium 134 L Potassium 3.0 L Chloride 96 L Carbon Dioxide 26 Anion Gap 12 BUN 26 H Creatinine 1.20 H Estim Creat Clear Calc 47 Estimated GFR 44 L Glucose 131 H Lactic Acid 1.9 Calcium 10.0 Magnesium 2.0 Total Bilirubin 2.1 H AST 56 H ALT 44 H Alkaline Phosphatase 118 Lactate Dehydrogenase Troponin I < 0.012 NT-Pro-B Natriuret Pep 298 H Total Protein 9.0 H Albumin 4.7 Procalcitonin 0.3 Urine Color Urine Appearance Urine pH Ur Specific [place] Urine Protein Urine Glucose (UA) Urine Ketones Ur Blood (Man) Urine Nitrate Urine Bilirubin Urine Urobilinogen Add Ur Microanalysis Leukocyte Esterase Rfl Urine RBC Urine WBC Ur Squamous Epith Cells Urine Bacteria Urine Casts 05/17/24 05/17/24 01:22 06:52 WBC 8.2 RBC 4.56 Hgb 12.8 Hct 40.4 MCV 88.6 MCH 28.1 MCHC 31.7 L RDW 16.9 H Plt Count 198 MPV 10.6 H Immature Gran % (Auto) Neut % (Auto) Lymph % (Auto) [place] % (Auto) Eos % (Auto) Baso % (Auto) Lymph # (Auto) [place] # (Auto) Eos # (Auto) Baso # (Auto) Abs Immat Gran (auto) Absolute Neuts (auto) Absolute Nucleated RBC Nucleated RBC % PT INR APTT Puncture Site ABG pH ABG pCO2 ABG pO2 ABG PO2/FiO2 Ratio ABG HCO3 ABG O2 Saturation ABG O2 Content ABG Base Excess A-a Gradient Oxyhemoglobin Total Hemoglobin O2 Delivery Device O2 Liters/Min FiO2 Sodium 135 L Potassium 3.0 L Chloride 102 Carbon Dioxide 25 Anion Gap 8 BUN 20 H Creatinine 1.00 Estim Creat Clear Calc 56 Estimated GFR 55 L Glucose 92 Lactic Acid Calcium 8.5 Magnesium 1.9 Total Bilirubin 1.4 H AST 41 H ALT 34 Alkaline Phosphatase 81 Lactate Dehydrogenase 168 Troponin I NT-Pro-B Natriuret Pep Total Protein 7.0 Albumin 3.7 Procalcitonin Urine Color Yellow Urine Appearance Clear Urine pH 5.5 Ur Specific [place] 1.016 Urine Protein Negative Urine Glucose (UA) 3+ H Urine Ketones Negative Ur Blood (Man) Negative Urine Nitrate Positive H Urine Bilirubin Negative Urine Urobilinogen 0.2 Add Ur Microanalysis Reviewed Leukocyte Esterase Rfl Negative Urine RBC 0-2 Urine WBC 11-20 H Ur Squamous Epith Cells None seen Urine Bacteria 1+ H Urine Casts 0-2 Quality VTE Prophylaxis VTE prophylaxis: pharmacologic ordered Hospitalist MIPS Advance Care Plan I have confirmed that the patient's Advanced Care Plan is present, code status is documented, or surrogate decision maker is listed in patient medical record.: Yes Medication Reconciliation I have utilized all available resources to obtain, update and review the patients current medications (includes all prescriptions, OTC, herbals, cannabis, and nutritional supplements).: Yes
[2024-05-17] MEDS: METOPROLOL SUCCINATE EXT REL 50 MG TABCR PO (20:16)
[2024-05-17] MEDS: LORATADINE 10 MG TABLET PO (20:16)
[2024-05-17] MEDS: ROSUVASTATIN 20 MG TABLET PO (20:17)
[2024-05-17] MEDS: amLODIPine BESYLATE 5 MG TABLET PO (20:17)
[2024-05-17] MEDS: ASPIRIN 81 MG ENTERIC TABLET PO (20:17)
[2024-05-17] MEDS: POTASSIUM CHLORIDE 20 MEQ ER TABLET 40 MEQ PO (20:18)
[2024-05-18 05:26] LABS: Basophils Percent Auto 0.7 % (0.2-1.2); Eosinophils Absolute Auto 0.2 K/mm3 (0-0.3); Eosinophils Percent Auto 3.7 % (0-4.4); Hematocrit 40.9 % (37.0-47.0); Hemoglobin 12.8 g/dL (12.0-15.0); Immature Granulocyte Absolute 0.01 K/mm3 (0.00-0.031); Immature Granulocyte Percent A 0.2 % (0-0.5); Lymphocytes Absolute Auto 1.99 K/mm3 (0.9-3.2); Lymphocytes Percent Auto 33.1 % (18.3-44.2); Mean Corpuscular HGB Conc 31.3 g/dl (32-36); Mean Corpuscular Hemoglobin 27.9 pg (26-34); Mean Corpuscular Volume 89.1 fl (80-100); Mean Platelet Volume 11.1 fl (7.4-10.4); Monocytes Absolute Auto 0.7 K/mm3 (0.1-0.6); Neutrophils Percent Auto 50.3 % (45.5-73.1); Platelet Count Result 213 k/mm3 (150-375); Red Blood Count 4.59 M/mm3 (4.2-5.4); Red Cell Distribution Width 16.8 % (11.5-14.5)
[2024-05-18 05:35] LABS: Alanine Aminotransferase 31 U/L (6-35); Albumin Level 3.6 g/dL (3.5-5.1); Alkaline Phosphatase 80 U/L (38-126); Anion Gap 5 mmol/L (4-12); Aspartate Amino Transferase 37 U/L (14-36); Bilirubin,Total 0.8 mg/dL (0.2-1.3); Blood Urea Nitrogen 20 mg/dL (7-17); Calcium 8.7 mg/dL (8.4-10.2); Carbon Dioxide 27 mmol/L (22-30); Chloride 106 mmol/L (98-107); Estimated CRCL calculation 51 ml/min; Estimated Glomerular Filt Rate 49; Glucose 78 mg/dL (65-110); Magnesium 2.3 mg/dL (1.6-2.3); Potassium 3.4 mmol/L (3.4-5.0); Sodium 138 mmol/L (137-145)
[2024-05-18 06:00] VITALS: BP 145/65; PULSE 65; RESP 18; TEMP 36.5; O2SAT 95
[2024-05-18] MEDS: LEVOTHYROXINE SODIUM 50 MCG TABLET BY MOUTH (06:40)
[2024-05-18] MEDS: ENOXAPARIN 40 MG/0.4 ML SYRINGE SUB-Q (09:14)
[2024-05-18] MEDS: EMPAGLIFLOZIN 10 MG TABLET BY MOUTH (09:14)
[2024-05-18] MEDS: predniSONE 5 MG TABLET PO (09:14)
[2024-05-18] MEDS: PREGABALIN (*CRX) 75 MG CAPSULE PO ×2 (09:15→16:55)
[2024-05-18] MEDS: FERROUS SULFATE 325 MG TABLET DR PO ×2 (09:15→16:56)
--- NOTE | 2024-05-18 11:37 | PM.IMPN ---
Progress Note: A&P Assessment and Plan (1) COVID-19: Code(s): U07.1 - COVID-19 Status: Acute Assessment and Plan: - Maintain Covid isolation precautions. - Paxlovid started outpatient the day before her admission. - Currently on Remdesivir IV. - No indication for steroids currently. - Good O2 sats > 90 % on RA currently. - Monitor closely for cardiopulmonary distress. (2) Hypokalemia: Code(s): E87.6 - Hypokalemia Status: Acute Assessment and Plan: - Repleted and currently wnl. - Continue to monitor levels. (3) Dehydration: Code(s): E86.0 - Dehydration Status: Acute Assessment and Plan: - Improving with IVF hydration. - Encouraged with Po fluids. - IVF d/c with good PO intake. (4) Elevated LFTs: Code(s): R79.89 - Other specified abnormal findings of blood chemistry Status: Acute Assessment and Plan: - Possibly related to acute viral infection. - Continues to trend down. - Continue to trend. (5) Bacteriuria with pyuria: Code(s): R82.71 - Bacteriuria; R82.81 - Pyuria Status: Acute Assessment and Plan: - UA suspicious for UTI. - Started on Levaquin. - Urine culture growing E. Coli. - Continue to follow cultures for sensitivities. (6) Diastolic congestive heart failure with preserved left ventricular function, NYHA class 2: Code(s): I50.30 - Unspecified diastolic (congestive) heart failure Status: Acute Assessment and Plan: - Appears compensated. - Monitor closely for decompensation. (7) Hypertension: Qualifiers: Hypertension type: primary hypertension Qualified Code(s): I10 - Essential (primary) hypertension Code(s): I10 - Essential (primary) hypertension Status: Acute Assessment and Plan: - BP fairly well controlled. - Continue Amlodipine and Metoprolol. (8) Hypothyroidism: Code(s): E03.9 - Hypothyroidism, unspecified Status: Acute Assessment and Plan: - TSH, FT4 pending. - Continue home dose levothyroxine. Plan - Continue Covid treatment with Remdesivir and supportive care. Continue UTI treatment and follow urine culture. Maintain Covid isolation precautions. Time Spent With Patient Time with patient: 15 - 25 minutes Subjective Date/time seen: 05/18/24 11:37 Patient calm on bedrest and states coughing has much improved and she feels like her energy and strength is getting back. Denies any SOB, muscle pain, diarrhea or other distressful symptoms. Interval history: Patient calm on bedrest and looks to be in no acute distress. Review of Systems Review of Systems: 12 systems were reviewed and are negative except for as per HPI. All systems reviewed & are unremarkable except as noted in HPI and below Exam Narrative: Weight: 110.5 kg. BMI: 40.5. General: Fair appearing and in no acute distress. HEENT: PERRL, EOMI. Sclera anicteric. moist mucous membranes. Neck: Supple. Respiratory: Lungs clear bilaterally. Cardiovascular: Regular rate and rhythm with S1-S2. Gastrointestinal: Abdomen is soft, obese, nontender, and nondistended with positive bowel sounds X4 quadrants. Skin: Warm and dry. Extremities: No cyanosis or clubbing. No lower extremity edema bilaterally. Neurological: Alert and well oriented. Cranial nerves II-XII are grossly intact. Psychiatric: Pleasant and cooperative with appropriate mood and affect. Objective Data Vital Signs Vital Signs: Vital Signs - 24 hr 05/17/24 14:00 05/17/24 20:00 05/17/24 21:59 Temperature 97.8 F 98.1 F Pulse Rate 79 79 73 Respiratory Rate 20 20 18 Blood Pressure 136/63 136/62 Pulse Oximetry 93 93 94 Oxygen Delivery Room Air Fraction of Inspired Oxygen 21 05/18/24 06:00 Temperature 97.7 F Pulse Rate 65 Respiratory Rate 18 Blood Pressure 145/65 H Pulse Oximetry 95 Oxygen Delivery Fraction of Inspired Oxygen Intake/Output Intake/Output: Intake & Output 05/15/24 05/16/24 05/17/24 05/18/24 23:59 23:59 23:59 23:59 Intake Total 2500.0 240 Output Total 1050 Balance 1450.0 240 Meds/Results Medications: Active Medications Generic Name Dose Route Start Last Admin Trade Name Freq PRN Reason Stop Dose Admin Acetaminophen 650 mg 05/17/24 02:02 05/17/24 20:18 Acetaminophen 325 Mg Tablet PO 650 mg Q4H PRN Administration Mild Pain (1-3) or Fever Albuterol 1 puff 05/17/24 06:05 Albuterol Sulfate (*Sp) Aerosol 1 Puff INHALATION Q4HRT PRN shortness of breath or wheezing Amlodipine Besylate 5 mg 05/17/24 21:00 05/17/24 20:17 Amlodipine Besylate 5 Mg Tablet PO 5 mg 2100 [facility] Administration Aspirin 81 mg 05/17/24 21:00 05/17/24 20:17 Aspirin 81 Mg Enteric Tablet PO 81 mg QHS [facility] Administration Empagliflozin 10 mg 05/17/24 09:00 05/18/24 09:14 Empagliflozin 10 Mg Tablet BY MOUTH 10 mg DAILY [facility] Administration Enoxaparin Sodium 40 mg 05/17/24 09:00 05/18/24 09:14 Enoxaparin 40 Mg/0.4 Ml Syringe SUB-Q 40 mg DAILY [facility] Administration Ferrous Sulfate 325 mg 05/17/24 09:00 05/18/24 09:15 Ferrous Sulfate [address] PO 325 mg BID [facility] Administration Levofloxacin/Dextrose 750 mg in 150 mls @ 100 mls/hr 05/18/24 23:00 Levaquin 750 Mg/D5w 150 Ml IVPB Q48H [facility] Remdesivir 100 mg in 250 mls @ 250 mls/hr 05/18/24 22:00 IVPB 05/21/24 22:59 Q24H [facility] Levothyroxine Sodium 50 mcg 05/17/24 06:30 05/18/24 06:40 Levothyroxine Sodium 50 Mcg Tablet BY MOUTH 50 mcg DAILY@0630 [facility] Administration Loratadine 10 mg 05/17/24 21:00 05/17/24 20:16 Loratadine 10 Mg Tablet PO 10 mg 2100 [facility] Administration Metoprolol Succinate 50 mg 05/17/24 21:00 05/17/24 20:16 Metoprolol Succinate Ext Rel 50 Mg Tabcr PO 50 mg 2100 [facility] Administration Miscellaneous Information 1 each 05/17/24 00:01 Ursodiol 250 Mg Tablet Nonformulary, Can Patient Bring From Home? XX 06/16/24 00:00 CLARIFY [facility] Non-Formulary Medication 750 mg 05/17/24 21:00 Ursodiol PO 06/16/24 20:59 QHS [facility] Prednisone 5 mg 05/17/24 08:00 05/18/24 09:14 Prednisone 5 Mg Tablet PO 5 mg DAILY@0800 [facility] Administration Pregabalin 75 mg 05/17/24 09:00 05/18/24 09:15 Pregabalin (*Crx) 75 Mg Capsule PO 75 mg BID [facility] Administration Rosuvastatin Calcium 20 mg 05/17/24 21:00 05/17/24 20:17 Rosuvastatin 20 Mg Tablet PO 20 mg 2100 [facility] Administration Radiology Results: ITS Impressions Chest X-Ray 05/17/24 06:19 IMPRESSION: 1. Stable mild airspace opacities in left mid and upper lung zones, consistent with radiation fibrosis. Labs Labs: Laboratory Results - last 24 hr 05/17/24 05/18/24 05/18/24 06:46 04:33 04:33 WBC 6.0 RBC 4.59 Hgb 12.8 Hct 40.9 MCV 89.1 MCH 27.9 MCHC 31.3 L RDW 16.8 H Plt Count 213 MPV 11.1 H Immature Gran % (Auto) 0.2 Neut % (Auto) 50.3 Lymph % (Auto) 33.1 [place] % (Auto) 12.0 H Eos % (Auto) 3.7 Baso % (Auto) 0.7 Lymph # (Auto) 1.99 [place] # (Auto) 0.7 H Eos # (Auto) 0.2 Baso # (Auto) 0.0 Abs Immat Gran (auto) 0.01 Absolute Neuts (auto) 3.0 Absolute Nucleated RBC 0.000 Nucleated RBC % 0.0 Sodium 138 Potassium 3.4 Chloride 106 Carbon Dioxide 27 Anion Gap 5 BUN 20 H Creatinine 1.10 H Estim Creat Clear Calc 51 Estimated GFR 49 L Glucose 78 Calcium 8.7 Magnesium 2.3 Cancelled Total Bilirubin 0.8 AST 37 H ALT 31 Alkaline Phosphatase 80 Total Protein 7.0 Albumin 3.6 TSH (Reflex) 2.540 Quality VTE Prophylaxis VTE prophylaxis: pharmacologic ordered Hospitalist MIPS Advance Care Plan I have confirmed that the patient's Advanced Care Plan is present, code status is documented, or surrogate decision maker is listed in patient medical record.: Yes Medication Reconciliation I have utilized all available resources to obtain, update and review the patients current medications (includes all prescriptions, OTC, herbals, cannabis, and nutritional supplements).: Yes
[2024-05-18 13:41] VITALS: BP 154/81; PULSE 71; RESP 24; TEMP 36.6; O2SAT 94
[2024-05-18 20:00] VITALS: PULSE 73; RESP 16; O2SAT 93
[2024-05-18 20:30] VITALS: BP 143/62; PULSE 73; RESP 16; TEMP 37.4; O2SAT 93
[2024-05-18] MEDS: ROSUVASTATIN 20 MG TABLET PO (20:47)
[2024-05-18] MEDS: METOPROLOL SUCCINATE EXT REL 50 MG TABCR PO (20:47)
[2024-05-18] MEDS: ASPIRIN 81 MG ENTERIC TABLET PO (20:47)
[2024-05-18] MEDS: LORATADINE 10 MG TABLET PO (20:47)
[2024-05-18] MEDS: ACETAMINOPHEN 325 MG TABLET 650 MG PO (20:48)
[2024-05-18] MEDS: REMDESIVIR 100 MG/NS 250 ML 100 MG/250 ML BAG 250 MG IVPB (20:48)
[2024-05-18] MEDS: amLODIPine BESYLATE 5 MG TABLET PO (20:48)
[2024-05-18] MEDS: levoFLOXacin 750 MG/D5W 150 ML 750 MG/150 ML BAG 100 MG IVPB (22:00)
[2024-05-19 05:31] VITALS: BP 143/69; PULSE 66; RESP 16; TEMP 36.5; O2SAT 92
[2024-05-19] MEDS: LEVOTHYROXINE SODIUM 50 MCG TABLET BY MOUTH (05:50)
[2024-05-19 06:10] LABS: INR 1.1; Prothrombin Time 14.8 Seconds (11.1-14.7)
[2024-05-19 06:12] LABS: Alanine Aminotransferase 34 U/L (6-35); Albumin Level 3.8 g/dL (3.5-5.1); Alkaline Phosphatase 82 U/L (38-126); Aspartate Amino Transferase 45 U/L (14-36); Bilirubin,Total 0.7 mg/dL (0.2-1.3)
[2024-05-19] MEDS: predniSONE 5 MG TABLET PO (08:32)
[2024-05-19] MEDS: PREGABALIN (*CRX) 75 MG CAPSULE PO (08:32)
[2024-05-19] MEDS: FERROUS SULFATE 325 MG TABLET DR PO (08:32)
[2024-05-19] MEDS: EMPAGLIFLOZIN 10 MG TABLET BY MOUTH (08:32)
[2024-05-19] MEDS: ENOXAPARIN 40 MG/0.4 ML SYRINGE SUB-Q (08:33)
[2024-05-19 14:00] VITALS: BP 137/70; PULSE 69; RESP 20; TEMP 36.6; O2SAT 96
--- NOTE | 2024-05-19 15:41 | P.DS_ITS ---
DS: Admitting Diagnosis Discharge Date 05/19/2024 Admitting Diagnosis Generalized Muscle Weakness DS: Discharge Diagnosis Discharge Diagnosis (1) COVID-19: Code(s): U07.1 - COVID-19 Status: Acute Assessment and Plan: - Maintained on Covid isolation precautions. - Paxlovid started outpatient the day before her admission. - Treated with Remdesivir IV inpatient. - No indication for steroids noted inpatient. - Good O2 sats > 90 % on RA prior to discharge. - No cardiopulmonary symptoms observed during inpatient stay. (2) Hypokalemia: Code(s): E87.6 - Hypokalemia Status: Acute Assessment and Plan: - Repleted and wnl prior to discharge. (3) Dehydration: Code(s): E86.0 - Dehydration Status: Acute Assessment and Plan: - Resolved with IVF hydration. (4) Elevated LFTs: Code(s): R79.89 - Other specified abnormal findings of blood chemistry Status: Acute Assessment and Plan: - Possibly related to acute viral infection. - Stable inpatient. - Follow-up with PCP for repeat labs. (5) Bacteriuria with pyuria: Code(s): R82.71 - Bacteriuria; R82.81 - Pyuria Status: Acute Assessment and Plan: - UA suspicious for UTI. - Started on Levaquin. - Urine culture growing Pansensitive E. Coli. - Patient to complete PO abx treatment at home. (6) Diastolic congestive heart failure with preserved left ventricular function, NYHA class 2: Code(s): I50.30 - Unspecified diastolic (congestive) heart failure Status: Acute Assessment and Plan: - Well compensated inpatient. (7) Hypertension: Qualifiers: Hypertension type: primary hypertension Qualified Code(s): I10 - Essential (primary) hypertension Code(s): I10 - Essential (primary) hypertension Status: Acute Assessment and Plan: - BP fairly well controlled inpatient on Amlodipine and Metoprolol. (8) Hypothyroidism: Code(s): E03.9 - Hypothyroidism, unspecified Status: Acute Assessment and Plan: - TSH wnl inpatient. - Continued on home dose levothyroxine inpatient. Plan - Discharge Home on Self Care. DS: Summary Hospital Course Reason for hospitalization: Generalized Muscle Weakness. Hospital Course: Patient presented to the ER with increased muscle weakness. Patient had been seen at a local urgent care day before her presentation to the ER and was diagnosed with Covid. She was started on Paxlovid but with worsening of symptoms after a dose of Paxlovid, she presented to the ER for evaluation. Patient's initial work-up lab showed mildly elevated WBC 12, slightly elevated LFT's which was suspected to be secondary to acute viral infection, with some hyponatremia, hypokalemia and HOLLY with slightly elevated Cr 1.2. She was oberved to be dehydrated and admitted for hydration and stabilization of her symptoms. Patient has been treated with Remdesivir IV and hydrated with IVF. Her electrolytes were corrected and her HOLLY resolved with IVF hydration. Her elevated LFT's have improved with only ALT mildly elevated prior to discharge. She reports much impr ovement in strength and symptoms as a whole. Her UA was consistent with possible UTI, with her blood cultures NGTD and urine cultures growing pansensitive E.Coli. She had been started on empiric Levaquin, which she will complete at home for her UTI. Patient has been walking in the room without any assistance and states she's almost back to her baseline. No acute distress noted or reported and pt is medically stable for discharge. Status at Discharge Functional status at discharge: independent ambulation Overall status at discharge: patient is progressing back to baseline Time Spent with Patient Time attestation: Total time spent providing and/or coordinating discharge services: Time spent: Greater than 30 minutes Exam Narrative: Weight: 110.5 kg. BMI: 40.5. General: Fair appearing and in no acute distress. HEENT: PERRL, EOMI. Sclera anicteric. moist mucous membranes. Neck: Supple. Respiratory: Lungs clear bilaterally. Cardiovascular: Regular rate and rhythm with S1-S2. Gastrointestinal: Abdomen is soft, obese, nontender, and nondistended with positive bowel sounds X4 quadrants. Skin: Warm and dry. Extremities: No cyanosis or clubbing. No lower extremity edema bilaterally. Neurological: Alert and well oriented. Cranial nerves II-XII are grossly intact. Psychiatric: Pleasant and cooperative with appropriate mood and affect. DS: Data Data Completed and Pending Labs on day of discharge: Labs from last 24 hours 05/19/24 05:30 PT 14.8 H INR 1.1 Total Bilirubin 0.7 Direct Bilirubin 0.0 AST 45 H ALT 34 Alkaline Phosphatase 82 Total Protein 7.0 Albumin 3.8 Discharge Plan Discharge Attending physician on discharge: Abraham Byrne Discharging Clinician: Crissy Gao Anticipated Discharge Date/Time: 05/19/24 16:06 Patient Disposition: Home, Self-Care Activity: as tolerated Diet: heart healthy Patient Instructions: Antibiotic Form, COVID-19 (Coronavirus Disease 2019) (DC), COVID-19 and Chronic Health Conditions (DC) Stand Alone Forms: General Discharge Information Follow-up/Referrals: Devon Villafana MD [Primary Care Provider] - 2 Weeks Discharge Medications: New levofloxacin 750 mg tablet 750 mg PO DAILY Qty: 3 0RF Continued aspirin 81 mg tablet,delayed release (DR/EC) 81 mg PO QHS ferrous sulfate 325 mg (65 mg iron) tablet,delayed release (DR/EC) 325 mg PO BID Farxiga 10 mg tablet 10 mg PO DAILY Qty: 90 1RF ursodiol 250 mg tablet 750 mg PO QHS Patient Comments: managed by [employer] Zyrtec 10 mg capsule 10 mg PO DAILY hydrochlorothiazide 25 mg tablet 25 mg PO DAILY Qty: 90 3RF amlodipine 5 mg tablet 5 mg PO DAILY Qty: 90 3RF scopolamine base 1 mg over 3 days patch 3 day 1 patch transdermal PRN Qty: 24 0RF rosuvastatin 20 mg tablet 20 mg PO DAILY Qty: 100 3RF albuterol sulfate [ProAir HFA] 90 mcg/actuation HFA aerosol inhaler 1 inh inhalation Q4H PRN (Reason: shortness of breath or wheezing) Qty: 8.5 2RF metoprolol succinate 50 mg tablet extended release 24 hr 50 mg PO DAILY Qty: 90 3RF prednisone 5 mg tablet 5 mg PO DAILY Qty: 90 1RF Rx Instructions: minimum of 6 months levothyroxine 50 mcg tablet See Rx Instructions .ROUTE .COMPLEX Qty: 90 0RF Dose Instruction: TAKE ONE TABLET BY MOUTH EVERY MORNING Rx Instructions: TAKE ONE TABLET BY MOUTH EVERY MORNING pregabalin [Lyrica] 75 mg capsule 75 mg PO BID Qty: 60 5RF Date of admission: 05/17/24 02:02 Primary Care Provider: Devon Villafana Admitting Provider: Abraham Byrne Attending physician on admission: Abraham Byrne Condition: Stable Quality If No VTE Prophylaxis Answer both mechanical and pharmacologic: Reason no mechanical VTE proph: low risk/not indicated Reason no pharmacologic proph: low risk/not indicated Hospitalist MIPS Heart Failure (Exclusion) Patient has history of Heart Transplant or Left Ventricular Assistive Device?: No IF YES, STOP HERE Heart Failure (Qualifier) Patient has current or prior documentation of LVEF less than or equal to 40%, or mod/servere depressed LVSF?: No IF NO, STOP HERE If Yes, Heart Failure (Qualifier) Patient was prescribed or already taking bisoprolol, carvedilol, or sustained release metoprolol succinate: Yes
== END 2024-05-19 16:22 | disposition home or self-care (01) ==
LOC: ANHED 05-17 01:51 → ANH2MED 05-19 10:59
PROVIDERS: Physician Assistant; Admitting Provider Internal Medicine; Emergency Provider Emergency Medicine; PCP Family Medicine; Visit Provider Nurse Practitioner Adult Health
DX: U07.1 COVID-19 (principal); E87.6 Hypokalemia; N17.9 Acute kidney failure, unspecified; N39.0 Urinary tract infection, site not specified; B96.20 Unspecified Escherichia coli [E. coli] as the cause of diseases classified elsewhere; E86.0 Dehydration; R53.1 Weakness; R79.89 Other specified abnormal findings of blood chemistry; I25.10 Atherosclerotic heart disease of native coronary artery without angina pectoris; I13.0 Hypertensive heart and chronic kidney disease with heart failure and stage 1 through stage 4 chronic kidney disease, or unspecified chronic kidney disease; I50.30 Unspecified diastolic (congestive) heart failure; N18.30 Chronic kidney disease, stage 3 unspecified; E03.9 Hypothyroidism, unspecified; E78.5 Hyperlipidemia, unspecified; I73.9 Peripheral vascular disease, unspecified; M35.3 Polymyalgia rheumatica; E55.9 Vitamin D deficiency, unspecified; Z95.820 Peripheral vascular angioplasty status with implants and grafts; E66.01 Morbid (severe) obesity due to excess calories; Z68.41 Body mass index [BMI] 40.0-44.9, adult; Z79.82 Long term (current) use of aspirin; Z85.3 Personal history of malignant neoplasm of breast; Z92.3 Personal history of irradiation; Z92.21 Personal history of antineoplastic chemotherapy; Z79.84 Long term (current) use of oral hypoglycemic drugs; Z79.51 Long term (current) use of inhaled steroids; Z79.810 Long term (current) use of selective estrogen receptor modulators (SERMs)
CPT/HCPCS: 36415; 36600; 71045; 80053; 80076; 81001; 82533; 82728; 82805; 83605; 83615; 83735; 83880; 84145; 84443; 84484; 85018; 85025; 85027; 85610; 85730; 87077; 87086; 87186; 93005; 96365; 96366; 99285; A9270; J0248; J1650; J1956; J3480; J7030; J7040; J7512

== ENCOUNTER 2025-03-31 10:41 | Outpatient (CLI) | payer OTHER, SELFPAY ==
--- NOTE | ~2025-03-31 | US_ITS ---
ULTRASOUND ABDOMEN LIMITED (RIGHT UPPER QUADRANT) Clinical History: biliary cholangitis, liver lesion, lung nodule Comparison: CT abdomen pelvis 04/05/2023 Technique: Right upper quadrant sonography Findings: Liver: Nodular contour. Enlarged. Echogenic. No intrahepatic biliary ductal dilatation. Normal hepatopedal flow main portal vein. No discrete liver lesion noted. Common Duct: 8 mm. Gallbladder: Removed. Pancreas: Largely obscured by bowel gas. Right kidney: Poorly seen. Retrohepatic IVC: Unremarkable. IMPRESSION: 1. No acute findings. 2. Cirrhosis. No discrete liver lesion identified. Reviewed, dictated and finalized at location R.
== END 2025-03-31 10:42 | disposition home or self-care (01) ==
LOC: MICIMG 10:41
PROVIDERS: PCP Family Medicine; Visit Provider Internal Medicine Gastroenterology
DX: K74.3 Primary biliary cirrhosis (principal); K76.9 Liver disease, unspecified; R91.1 Solitary pulmonary nodule
CPT/HCPCS: 76705